=== PATIENT | female | born 1990 | race Caucasian/White ===

== ENCOUNTER 2024-08-11 00:07 | Emergency (ER) | payer OTHER, SELFPAY ==
[2024-08-11 00:14] VITALS: BP 139/98; PULSE 90; TEMP 36.4; O2SAT 95; BMI 50.1
[2024-08-11 00:33] LABS: Bilirubin Urine NEGATIVE (NEGATIVE); Blood Urine NEGATIVE (NEGATIVE); Clarity Urine CLEAR (CLEAR); Color Urine LT. YELLOW (YELLOW); Glucose Urine UA NEGATIVE (NEGATIVE); Ketones Urine TRACE mg/dL (NEGATIVE); Leukocyte Esterase Urine MODERATE (NEGATIVE); Nitrite Urine POSITIVE (NEGATIVE); Protein Urine NEGATIVE (NEG/TRACE); Specific Gravity Urine >=1.030 (1.005-1.025); Urine Microscopic Indicated YES; Urobilinogen Urine 0.2 EU/dL (0.2-1.0)
[2024-08-11 00:34] LABS: HCG Qualitative Urine* NEGATIVE (NEGATIVE); Internal Control Within Normal Limits
--- NOTE | 2024-08-11 00:43 | ED.GENADUL1 ---
HPI HPI - General Adult General Chief complaint: Back Pain/Injury Stated complaint: BACK PAIN Time Seen by Provider: 08/11/24 00:35 Source: patient Mode of arrival: walk-in Limitations: no limitations History of Present Illness HPI narrative: 33-year-old female presents to the emergency department for a chief complaint of low back pain. It started within the last day or so and was not associated with any trauma or unusual activity. It does not radiate. No fever or vomiting or gross hematuria. Related Data Home Medications ?Medication ?Instructions ?Recorded ?Confirmed dulaglutide 3 mg/0.5 mL 3 mg subcut QWEEK 08/11/24 08/11/24 subcutaneous pen injector ([facility]) metformin 500 mg tablet,extended 500 mg PO BID 08/11/24 08/11/24 release 24 hr omeprazole 40 mg capsule,delayed 40 mg PO DAILY 08/11/24 08/11/24 release Previous Rx's ?Medication ?Instructions ?Recorded cephalexin 500 mg capsule 500 mg PO TID 7 days #21 caps 08/11/24 Allergies Allergy/AdvReac Type Severity Reaction Status Date / Time amoxicillin (From Augmentin) Allergy Severe Rash Verified 08/11/24 00:18 clavulanic acid (From Allergy Severe Rash Verified 08/11/24 00:18 Augmentin) Opioid HPI Opioid Management Most Recent Opioid Data: No Data to Display Review of Systems ROS Narrative A ten point review of systems is negative except as noted above. PFSH PFSH Social History Little interest or pleasure in doing things: not at all Feeling down, depressed, or hopeless: not at all Exam Narrative Exam Narrative: Nurses note and vital signs reviewed and patient is not hypoxic. General: The patient appears well and in no apparent distress. Patient is resting comfortably on cart. Skin: Warm, dry, no pallor noted. There is no rash noted. Head: Normocephalic, atraumatic Eye: Normal conjunctiva, no drainage Ears, Nose, Mouth, and Throat: oral mucosa is moist. Nares patent. Cardiovascular: Regular Rate and Rhythm Respiratory: Patient is in no distress, no accessory muscle use, lungs are clear to auscultation, no wheezing, rales or rhonchi Back: non-tender, no CVA tenderness bilaterally to percussion. No palpable tenderness GI: Soft and nontender Musculoskeletal: No joint swelling Neurological: A&O, normal speech Psychiatric: Cooperative Constitutional Vital Signs, click to edit/add: Last Vital Signs Temp 97.6 F 08/11/24 00:14 Pulse 90 08/11/24 00:14 Resp 18 08/11/24 00:14 BP 139/98 H 08/11/24 00:14 Pulse Ox 95 08/11/24 00:14 O2 Del Method Room Air 08/11/24 00:14 Course Vital Signs Vital signs: Vital Signs Temperature 97.6 F 08/11/24 00:14 Pulse Rate 90 08/11/24 00:14 Respiratory Rate 18 08/11/24 00:14 Blood Pressure 139/98 H 08/11/24 00:14 Pulse Oximetry 95 08/11/24 00:14 Oxygen Delivery Method Room Air 08/11/24 00:14 Temperature 97.6 F 08/11/24 00:14 Pulse Rate 90 08/11/24 00:14 Respiratory Rate 18 08/11/24 00:14 Blood Pressure 139/98 H 08/11/24 00:14 Pulse Oximetry 95 08/11/24 00:14 Oxygen Delivery Method Room Air 08/11/24 00:14 Medical Decision Making MDM Narrative Medical decision making narrative: Urinalysis shows UTI and test is negative. She was started on Keflex here and prescribed same. Treatment diagnosis and follow-up were discussed with the patient. Differential Diagnosis Differential Diagnosis: UTI, muscle strain Lab Data Lab results reviewed: Yes I reviewed the patient's lab results Labs: Lab Results 08/11/24 Range/Units 00:25 Urine Color Lt. yellow (YELLOW) Urine Clarity Clear (CLEAR) Urine pH 6.0 (5.0-9.0) Ur Specific [place] >=1.030 A (1.005-1.025) Urine Protein Negative (NEG/TRACE) mg/dL Urine Glucose (UA) Negative (NEGATIVE) mg/dL Urine Ketones Trace A (NEGATIVE) mg/dL Urine Occult Blood Negative (NEGATIVE) Urine Nitrite Positive A (NEGATIVE) Urine Bilirubin Negative (NEGATIVE) Urine Urobilinogen 0.2 (0.2-1.0) EU/dL Ur Leukocyte Esterase Moderate A (NEGATIVE) Urine HCG, Qual Negative (NEGATIVE) Discharge Plan Discharge Chief Complaint: Back Pain/Injury Clinical Impression: Urinary tract infection Patient Disposition: Home, Self-Care Time of Disposition Decision: 00:40 Condition: Good Mode of Transportation: Private Vehicle Prescriptions / Home Meds: New cephalexin 500 mg capsule 500 mg PO TID 7 Days Qty: 21 0RF No Action omeprazole 40 mg capsule,delayed release(DR/EC) 40 mg PO DAILY Trulicity 3 mg/0.5 mL pen injector 3 mg subcut QWEEK metformin 500 mg tablet extended release 24 hr 500 mg PO BID Print Language: Spanish Instructions: Urinary Tract Infection in Women (ED) Referrals: Anya Darden NP [Primary Care Provider] - 1 week
[2024-08-11 00:45] LABS: Bacteria Urine LARGE #/HPF (NONE SEEN); Cast Seen? NONE SEEN #/LPF (NONE SEEN); Crystals Seen? None Seen #/HPF (None Seen); Mucus Urine NONE SEEN (NONE SEEN); RBC Urine 0-2 #/HPF (0-2); Squamous Epithelial Cell Urine FEW #/LPF (NONE/RARE); Trichomonas Urine SEEN (NONE SEEN); Urine Culture Indicated YES
[2024-08-11] MEDS: CEPHALEXIN 500 MG CAPSULE PO (00:48)
[2024-08-11 00:56] VITALS: PULSE 88; O2SAT 96
[2024-08-11 14:41] LABS: BOX Test Reference Lab FIRELANDS
--- NOTE | 2024-08-17 14:09 | PC.NURSE ---
Urine culture completed and reviewed by Charlotte LEYVA. patient was already placed on cephalexin and no change in treatment.
== END 2024-08-11 00:56 | disposition home or self-care (01) ==
PROVIDERS: Emergency Provider Emergency Medicine; PCP Nurse Practitioner Family
DX: N39.0 Urinary tract infection, site not specified (principal)
CPT/HCPCS: 36415; 81001; 84703; 87086; 87150; 87186; 99283

== ENCOUNTER 2025-01-07 03:49 | Emergency (ER) | payer OTHER, SELFPAY ==
[2025-01-07 04:00] VITALS: BP 153/95; PULSE 69; TEMP 36.5; O2SAT 99; BMI 55.2
--- OUTSIDE RECORDS SUMMARY | 2025-01-07 04:01 | XMS_ITS | CCD ---
Author Organization [facility] Care Team Providers Care People Greeter Name Role Phone NON STAFF Primary Care Provider Unavailabl e Bullimore, SHIP'S OFFICER-BC Cynthia E Emergency Provider YOUSSEF, RAHEEM Referring Unavailable YOUSSEF, RAHEEM Primary Care Unavailable AINSLEY JOHNSON Referring Unavailable YOUSSEF, RAHEEM Primary Care Unavailable AINSLEY JOHNSON Referring Unavailable YOUSSEF, RAHEEM Primary Care Unavailable YOUSSEF, RAHEEM Referring Unavailable YOUSSEF, RAHEEM Primary Care Unavailable THERESA MAYERS Attending Unavailable THERESA MAYERS Referring Unavailable YOUSSEF, RAHEEM Primary Care Unavailable THERESA MAYERS Referring Unavailable YOUSSEF, RAHEEM Primary Care Unavailable DAVID COLE Admitting Unavailable GRILLISDAVID Attending Unavailable GRILLISDAVID E Referring Unavailable YOUSSEF, RAHEEM Primary Care Unavailable DAVID COLE Attending Unavailable SUKHIILLISDAVID Referring Unavailable YOUSSEF, RAHEEM Primary Care Unavailable RENETTA MELENDREZ Attending Unavailable YOUSSEF, RAHEEM Primary Care Unavailable AINSLEY JOHNSON Referring Unavailable YOUSSEF, RAHEEM Primary Care Unavailable Paddy Lee DO Attending Provider Unavailab le Youssef CLAIMS DIRECTOR-CORPORATE DIRECTOR TALENT ASSESSMENT, Raheem Primary Care Provider NON STAFF Primary Care Unavailable Bullimore, Cynthia E Admitting Unavailable Bullimore, Cynthia E Attending Unavailable Paddy Lee Admitting Unavailable Paddy Lee Attending Unavailable YOUSSEF, RAHEEM Attending Unavailable YOUSSEF, RAHEEM Referring Unavailable YOUSSEF, RAHEEM Primary Care Unavailable YOUSSEF, RAHEEM Referring Unavailable YOUSSEF, RAHEEM Primary Care Unavailable YOUSSEF, RAHEEM Attending Unavailable YOUSSEF, RAHEEM Referring Unavailable YOUSSEF, RAHEEM Primary Care Unavailable SCOTT EDWARDS Attending Unavailable RAHEEM YOUSSEF Referring Unavailable RAHEEM YOUSSEF Primary Care Unavailable RAHEEM YOUSSEF Attending Unavailable RAHEEM YOUSSEF Referring Unavailable RAHEEM YOUSSEF Primary Care Unavailable Youssef CLAIMS DIRECTOR-CORPORATE DIRECTOR TALENT ASSESSMENT Raheem Primary Care Provider Allergies Allergy Classification Reported Allergen(s) Allergy Type Date of Onset Reaction(s) Facility (3 sources) Amoxicillin; Translations: [amoxicillin] Drug Allergy 4 [facility] (3 sources) Clavulanate; Translations: [clavulanic acid] Drug Allergy 4 [facility] (16 sources) AMOXICILLIN-POT CLAVULANATE; Translations: [AMOXICILLIN-POT CLAVULANATE] Propensity to adverse reactions to drug (disorder) 3 Rash [facility] Medications Current Medications Medication Drug Class(es) Dates Sig (Normalized) Sig (Original) blood-glucose meter kit (7 sources) Start: 02-09-2024 blood-glucose meter kit Indications: Controlled type 2 diabetes mellitus without complication, without long-term current use of insulin ([facility]) Use as instructed 1 each 02/09/2024 Active cholecalciferol 1.25 mg oral capsule (2 sources) Vitamin D Start: 11-07-2023 End: 12-27-2023 take 1 capsule by mouth every week cholecalciferol (VITAMIN D3) 50,000 units capsule Take 1 capsule (50,000 Units total) by mouth once a week for 8 doses. 8 capsule 11/07/2023 12/27/2023 Active cyclobenzaprine hydrochloride 10 mg oral tablet (2 sources) Muscle Relaxant Start: 01-26-2024 take 1 tablet by mouth three times daily as needed for muscle spasms Cyclobenzaprine 10 mg tablet Active 10 MG PO Three times daily as needed for muscle spasm January 25, 2024 11:00pm 0.5 ml dulaglutide 3 mg/ml auto-injector (9 sources) GLP-1 Receptor Agonist Start: 01-23-2024 End: 01-26-2024 Dulaglutide (Trulicity) 1.5 mg/0.5 mL pen injector Active 1.5 MG SUBCUT every week January 25, 2024 11:00pm Start: 12-16-2023 End: 01-23-2024 dulaglutide (TRULICITY) 1.5 mg/0.5 mL pen injector Indications: Prediabetes Inject 1.5 mg under the skin every 7 days. 2 mL 12/16/2023 01/23/2024 Discontinued Start: 11-06-2023 End: 12-16-2023 dulaglutide (TRULICITY) 0.75 mg/0.5 mL pen injector Indications: Prediabetes Inject 0.5 mL (0.75 mg total) under the skin every 7 days. 2 mL 11/06/2023 12/16/2023 Discontinued (Dose adjustment) ibuprofen 800 mg oral tablet (2 sources) Nonsteroidal Anti-inflammatory Drug Start: 07-24-2023 End: 10-22-2023 take 1 tablet by mouth every eight hours as needed for pain and headache ibuprofen (MOTRIN) 800 mg tablet Take 1 tablet (800 mg total) by mouth every 8 (eight) hours as needed for pain or headaches for up to 90 days. 30 tablet 3 07/24/2023 10/22/2023 Active ketorolac tromethamine 10 mg oral tablet (2 sources) Nonsteroidal Anti-inflammatory Drug, Cyclooxygenase Inhibitor Start: 01-26-2024 take 1 tablet by mouth every six hours as needed for pain Ketorolac 10 mg tablet Active 10 MG PO Q6H as needed for pain January 25, 2024 11:00pm lidocaine 0.05 mg/mg medicated patch (7 sources) Antiarrhythmic, Amide Local Anesthetic Start: 01-26-2024 apply 1 dose transdermal route once daily lidocaine (LIDODERM) 5 % Place 1 patch on the skin daily. 01/26/2024 Active Start: 01-26-2024 apply 1 dose topical ly once daily as needed for pain Lidocaine 5 % adhesive patch,medicated Active 1 PATCH TOPICAL Daily as needed for pain January 25, 2024 11:00pm leave on most painful area for up to 12 hrs metFORMIN hydrochloride 1000 mg oral tablet (19 sources) Biguanide Start: 08-11-2024 End: 11-09-2024 take 1 tablet by mouth in the morning, then take 1 tablet by mouth at mealtime metFORMIN (GLUCOPHAGE) 1000 mg tablet Take 1 tablet (1,000 mg total) by mouth in the morning and 1 tablet (1,000 mg total) in the evening. Take with meals. Do all this for 90 days. 180 tablet 1 08/11/2024 11/09/2024 Active Start: 07-24-2023 End: 08-11-2024 take 1 tablet by mouth in the morning, then take 1 tablet by mouth at mealtime metFORMIN (GLUCOPHAGE) 500 mg tablet Indications: Wellness examination Take 1 tablet (500 mg total) by mouth in the morning and 1 tablet (500 mg total) in the evening. Take with meals. 60 tablet 3 11/06/2023 04/18/2024 Discontinued (Reorder) predniSONE 50 mg oral tablet (4 sources) Start: 01-26-2024 take 1 tablet by mouth once daily Prednisone 50 mg tablet Active 50 MG PO Daily 4 4 January 25, 2024 11:00pm Start: 01-19-2018 End: 01-24-2018 take 2 tablets by mouth once daily Prednisone 20 mg tablet Discontinued 40 MG PO Daily 10 January 18, 2018 11:00pm January 22, 2018 11:00pm January 23, 2018 11:02pm Start: 01-19-2018 End: 01-24-2018 take 40 mg by mouth once daily Prednisone Discontinued 40 MG PO Daily 10 January 19, 2018 12:00am January 24, 2018 12:02am semaglutide (OZEMPIC) 0.25 m g or 0.5 mg (2 mg/3 mL) pen injector (4 sources) Start: 08-11-2024 semaglutide (O ZEMPIC) 0.25 mg or 0.5 mg (2 mg/3 mL) pen injector Indications: Controlled type 2 diabetes mellitus without complication, without long-term current use of insulin ([facility]) Inject 0.5 mg under the skin every 7 days. 2 mL 08/11/2024 Active Start: 02-09-2024 End: 02-25-2024 semaglutide (OZEMPIC) 0.25 m g or 0.5 mg (2 mg/3 mL) pen injector Indications: Controlled type 2 diabetes mellitus without complication, without long-term current use of insulin ([facility]) Inject 0.25 mg under the skin every 7 days. 6 mL 02/09/2024 02/25/2024 Discontinued (Formulary change) Start: 02-09-2024 semaglutide (O ZEMPIC) 0.25 mg or 0.5 mg (2 mg/3 mL) pen injector Indications: Controlled type 2 diabetes mellitus without complication, without long-term current use of insulin ([facility]) Inject 0.25 mg under the skin every 7 days. 6 mL 02/09/2024 Active Completed/Discontinued Medications Medication Drug Class(es) Dates Sig (Normalized) Sig (Original) Albuterol (1 source) beta2-Adrenergic Agonist Start: 01-19-2018 End: 01-26-2024 Albuterol Sulfate Discontinued 2 INH INHALATION Q4H January 19, 2018 12:00am January 26, 2024 9:49am administer with spacer Albuterol Sulfate 90 mcg/actuation HFA aerosol inhaler (1 source) Start: 01-19-2018 End: 01-26-2024 Albuterol Sulfate 90 mcg/actuation HFA aerosol inhaler Discontinued 2 INH INHALATION Q4H as needed for shortness of breath or wheezing January 18, 2018 11:00pm January 26, 2024 8:49am administer with spacer dulaglutide (TRULICITY) 3 mg/0.5 mL pen injector (8 sources) Start: 07-19-2024 End: 08-11-2024 dulaglutide (TRULICITY) 3 mg/0.5 mL pen injector Inject 3 mg under the skin every 7 days. 2 mL 2 07/19/2024 08/11/2024 Discontinued (Alternate therapy) Start: 01-26-2024 dulaglutide (T RULICITY) 3 mg/0.5 mL pen injector Inject 3 mg under the skin every 7 days. 2 mL 2 01/26/2024 Active levoFLOXacin 750 mg oral tablet (2 sources) Quinolone Antimicrobial Start: 01-19-2018 End: 01-29-2018 take 1 tablet by mouth every twenty-four hours Levofloxacin (Levaquin) 750 mg tablet Discontinued 750 MG PO Q24H 10 January 18, 2018 11:00pm January 27, 2018 11:00pm January 28, 2018 11:02pm omeprazole 40 mg delayed release oral capsule (19 sources) Proton Pump Inhibitor Start: 07-24-2023 End: 08-11-2024 take 1 capsule by mouth in the morning omeprazole (PriLOSEC) 40 mg capsule Indications: Wellness examination Take 1 capsule (40 mg total) by mouth in the morning. 30 capsule 2 11/06/2023 04/18/2024 Discontinued (Reorder) Problems Active Problems Problem Classification Problem Date Documented Da te Episodic/Chronic Diabetes mellitus without complication (14 sources) Type 2 diabetes mellitus without complications; Translations: [Type 2 diabetes mellitus without complication] Onset: 02-09-2024 08-13-2024 Chronic Esophageal disorders (4 sources) Vazquez's esophagus without dysplasia; Translations: [Vazquez's esophagus] Onset: 03-04-2024 08-11-2024 Chronic Genitourinary symptoms and ill-defined conditions (7 sources) Stress incontinence (female) (male); Translations: [Genuine stress incontinence] Onset: 07-28-2023 07-24-2023 Chronic Headache; including migraine (18 sources) Migraine without aura, not intractable, with status migrainosus; Translations: [Migraine without aura, not refractory ] Onset: 07-28-2023 07-28-2023 Chronic Other nutritional; endocrine; and metabolic disorders (1 source) Morbid (severe) obesity due to excess calories; Translations: [Morbid (severe) obesity due to excess calories] Onset: 02-26-2024 Chronic Other nutritional; endocrine; and metabolic disorders (1 source) Body mass index (BMI) 50.0-59.9, adult; Translations: [Body mass index (BMI) 50.0-59.9, adult] Onset: 02-26-2024 Chronic Other nutritional; endocrine; and metabolic disorders (10 sources) Morbid obesity; Translations: [Morbid (severe) obesity due to excess calories] Onset: 12-10-2023 12-10-2023 Chronic Other nutritional; endocrine; and metabolic disorders (2 sources) Body mass index 40+ - severely obese; Translations: [Body mass index (BMI) 50.0-59.9, adult] 02-25-2024 Chronic Other screening for suspected conditions (not mental disorders or infectious disease) (1 source) Encounter for screening for malignant neoplasm of cervix; Translations: [Encounter for screening for malignant neoplasm of cervix] Onset: 12-10-2023 Episodic Unclassified (1 source) Annual Exam Onset: 12-10-2023 Unclassified (1 source) wellness Onset: 11-06-2023 Past or Other Problems Problem Classification Problem Date Documented Da te Episodic/Chronic Contraceptive and procreative management (2 sources) Intrauterine contraceptive device in situ; Translations: [Encounter for routine checking of intrauterine contraceptive device] 07-24-2023 Episodic Diabetes mellitus without complication (20 sources) Prediabetes; Translations: [Prediabetes] Onset: 07-28-2023 07-28-2023 Episodic Mood disorders (14 sources) Mood disorders Onset: 07-24-2023 Resolved: 02-09-2024 02-09-2024 Other gastrointestinal disorders (1 source) Personal history of other diseases of the digestive system; Translations: [Personal history of other diseases of the digestive system] Onset: 02-25-2024 Episodic Other gastrointestinal disorders (2 sources) History of Vazquez's esophagus; Translations: [Personal history of other diseases of the digestive system] 02-23-2024 Episodic Residual codes; unclassified (1 source) Family history of other diseases of the digestive system; Translations: [Family history of other diseases of the digestive system] Onset: 02-09-2024 Episodic Residual codes; unclassified (1 source) Family history of cirrhosis of liver; Translations: [Family history of other diseases of the digestive system] 02-09-2024 Episodic Residual codes; unclassified (1 source) Electronic cigarette user; Translations: [Other problems related to lifestyle] 02-25-2024 Episodic Screening and history of mental health and substance abuse codes (1 source) Encounter for screening for depression; Translations: [Encounter for screening for depression] Onset: 12-10-2023 Episodic Spondylosis; intervertebral disc disorders; other back problems (3 sources) Spasm of back muscles; Translations: [Muscle spasm of back] Onset: 01-26-2024 01-26-2024 Episodic Unclassified (10 sources) Onset: 12-10-2023 12-10-2023 Results Test Name Value Interpretation Reference Range Facility POCT Hemoglobin A1con 2024 ADA Target < 8 Yes [facility] HbA1c (Bld) [Mass fraction] 6.5 % 4 - 7 % [facility] Urine Cultureon 08-10-2024 Bacteria identified Cx Nom (U) ORGANISM: Escherichia coli (O:ESCCOL) [place] Count >100,000 Aerobic ANGELICA Charge (NMIC56) ---- SUSCEPTIBILITY --- ORGANISM: O:ESCCOL ANTIBIOTIC INTERPRETATION ANGELICA Amikacin S <16 Amoxacillin/K Clavulanate S <8 Ampicillin S <8 Ampicillin/Sulbactam S <4 Aztreonam S <4 Cefazolin S <2 Cefepime S <2 Ceftazidime S <1 Ceftazidime/Avibactam S <4 Ceftolozane/Tazobacta m S <2 Ceftriaxone S <1 Cefuroxime S <4 Ciprofloxacin S <0.25 Ertapenem S <0.5 Gentamicin S <2 Levofloxacin S <0.5 Meropenem S <1 Meropenem/Vaborbactam S <2 Nitrofurantoin S <32 Piperacillin/Tazobact am S <8 Tetracycline S <4 Tigecycline S <2 Tobramycin S <2 Trimethoprim/Sulfamet hoxazole R >2 S = SUSCEPTIBLE I = INTERMEDIATE R = RESISTANT BLANK = DATA NOT AVAILABLE, OR DRUG NOT ADVISABLE OR TESTED R* = RESISTANCE DUE TO EXTENDED SPECTRUM BETA-LACTAMASES ESBL = EXTENDED SPECTRUM BETA-LACTAMASE TFG = THYMIDINE-DEPENDENT STRAIN TODD = BETA-LACTAMASE POSITIVE IB = INDUCIBLE BETA-LACTAMASE. APPEARS IN PLACE OF 'S' WITH SPECIES KNOWN TO POSSESS INDUCIBLE BETA-LACTAMASES. POTENTIALLY THEY MAY BECOME RESISTANT TO ALL B-LACTAM DRUGS. PERFORMED BY: [place] [address] PATHOLOGIST ORACLE BPM DEVELOPER KRISTEN MELGOZA M.D. Normal [facility] Comment on above: Performed By: #### C UU #### [place] [address] [place] HCG ( test) Ql (U)o n 03-04-2024 Beta HCG ( test) Ql (U) Negative Normal NEG [facility] Comment on above: Performed By: #### C BCA, CMP, 82626-6, TSHR, 37515-6, 2132-9, 3023- #### [facility] ([id number]) [address] [place] [address], [address] [place] [address] Surgical Pathologyon 024 Surgical Pathology Normal [facility] Comment on above: Result Comment: [facility] [address] [place] [address] Surgical Pathology Consultation Patient Name:EMILEE HOOD:1990 (Age: 33)Gender:FTaken:03/04/2024eported:03/08/2024hysician(s):David Cole D.O. ([phone])Copy To: Rec. #:[id number]: #[id number] Final Pathologic Diagnosis Distal esophageal biopsies: Intestinal metaplasia. Negative for dysplasia. Moderately active gastroesophagitis with mixed eosinophils and neutrophils. Report Electronically Signed Out ssi/03/08/2024Joaquim Ding M.D. Interpretation performed at [facility], [address] [place] [address], License number: [id number]. Clinical History Vazquez's esophagus. Gross Description Received in formalin labeled [facility], distal esophagus are light smith soft tissue fragment, 1.2 x 0.6 x 0.2 cm in aggregate. The specimen is filtered and entirely submitted in a single cassette. (1, ns, [id number]) DM. dm/03/04/2024O Specimen(s) Received Distal esophageal biopsy Fee Codes(s): 1; 68524, 3126F ECG 12 leadon 02-27-2024 TRACEMASTERVUE [facility] [employer] BASIC METABOLIC PANLon 02-25 Anion gap [Moles/Vol] 10 mmol/L Normal 5-[address] [facility] Comment on above: Performed By: #### C BCA, CMP, 09076-1, TSHR, 23962-5, 2131-, 3024-02 #### [facility] ([id number]) [address], [address] [place] [address] Calcium [Mass/Vol] 9.0 mg/dL Normal 8.5-10.5 [facility] Comment on above: Performed By: #### C BCA, CMP, 01730-5, TSHR, 22098-5, 2132-04, 3023-7 #### [facility] ([id number]) [address], [address] [place] [address] Chloride [Moles/Vol] 103 mmol/L Normal 98-[address] [facility] Comment on above: Performed By: #### C BCA, CMP, 71144-7, TSHR, 01409-2, 2132-04, 3023-7 #### [facility] ([id number]) [address], [address] [place] [address] CO2 [Moles/Vol] 24 mmol/L Normal 22-32 [facility] Comment on above: Performed By: #### C BCA, CMP, 95802-3, TSHR, 06677-0, 2132-04, 3023-7 #### [facility] ([id number]) [address] [address] [place] [address] Creatinine [Mass/Vol] 0.69 mg/dL Normal 0.40-1.[address] [facility] Comment on above: Result Comment: METH OD TRACEABLE TO IDMS STANDARD Performed By: #### C BCA, CMP, 20985-9, TSHR, 34358-6, 2132-04, 3023-7 #### [facility] ([id number]) [address] [address] [place] [address] eGFR (CKD-EPI) NON-RACE DEPENDENT >90 Normal >59 [facility] Comment on above: Result Comment: Reported eGFR is based on the CKD-EPI 2020 equation that does not use a race coefficient. Performed By: #### C BCA, CMP, 24680-5, TSHR, 19399-9, 2132-04, 3024-7 #### [facility] ([id number]) [address], [address] [place] [address] Glucose [Mass/Vol] 95 mg/dL Normal 65-99 [facility] Comment on above: Performed By: #### C BCA, CMP, 12971-8, TSHR, 17202-3, 2132-04, 3024-02 #### [facility] ([id number]) [address], [address] [place] [address] Potassium [Moles/Vol] 3.8 mmol/L Normal 3.5-5.[address] [facility] Comment on above: Performed By: #### C BCA, CMP, 34731-7, TSHR, 38139-2, 2132-04, 3024-02 #### [facility] ([id number]) [address], [address] [place] [address] Sodium [Moles/Vol] 137 mmol/L Normal 134-146 [facility] Comment on above: Performed By: #### C BCA, CMP, 91905-9, TSHR, 52306-6, 2132-04, 3024-02 #### [facility] ([id number]) [address], [address] [place] [address] Urea nitrogen [Mass/Vol] 15 mg/dL Normal 5-[address] [facility] Comment on above: Performed By: #### C BCA, CMP, 15087-8, TSHR, 65629-1, 2132-04, 3024-02 #### [facility] ([id number]) [address], [address] [place] [address] Basic Metabolic Panelon 07-2 Anion gap [Moles/Vol] 10 mmol/L 5 - 15 mmol/L [facility] Calcium [Mass/Vol] 9.0 mg/dL 8.5 - 10. 5 mg/dL [facility] Chloride [Moles/Vol] 103 mmol/L 98 - 109 mmol/L [facility] CO2 [Moles/Vol] 24 mmol/L 22 - 32 mmol/L [facility] Creatinine [Mass/Vol] 0.69 mg/dL 0.40 - 1.00 mg/dL [facility] Comment on above: METHOD TRACEABLE TO IDIL STANDARD eGFR (CKD-EPI)non-race dependent - PINF [facility] Comment on above: Reported eGFR is based on the CKD-EPI 2020 equation that does not use a race coefficient. Glucose [Mass/Vol] 95 mg/dL 65 - 99 mg/dL [facility] Potassium [Moles/Vol] 3.8 mmol/L 3.5 - 5.0 mmol/L [facility] Sodium [Moles/Vol] 137 mmol/L 134 - 146 mmol/L [facility] Urea nitrogen [Mass/Vol] 15 mg/dL 5 - 23 mg/dL [facility] XR chest 2V*on 01-26-2024 XR chest 2V* [facility] [place] [address] [place] [address] XRay Report Signed Patient: Emilee Hood MR#: [id number] : 1990 Acct:[id number] Age/Sex: 33 / F ADM Date: 01/26/24 Loc: ER Room: Type: [facility] ER Attending Dr: Copies to: AWILDA Day Ordering Provider: AWILDA Day Date of Service: 01/26/24 XR/XR chest 2V*: Back Pain/Injury Chest 2 views CLINICAL HISTORY: Left-sided back pain since yesterday. No known injury. COMPARISON: None FINDINGS: Heart normal in size. Lungs are clear. No free air. XR/XR chest 2V* IMPRESSION: NO ACUTE CARDIOPULMONARY ABNORMALITY. Impression dictated by: Ok Pollack Jr., D.O.01/26/2024 10:14 AM Dictation Location: [place] [address] Transcribed By: [facility] 01/26/24 1014 Dictated By: Ok Pollack Jr, DO 01/26/24 1012 Signed By: 01/26/24 1014 Normal [facility] Cytologyon 12-10-2023 Cytology Normal [facility] Comment on above: Result Comment: [facility] [address] [place] [address] Gynecologic Cytology Consultation Patient Name:AVILA HOODYDOB:1990 (Age: 32)Gender:FTaken:4Reported:4Physician(s):Ainsley Johnson APRN-CORPORATE DIRECTOR TALENT ASSESSMENT ([phone])Copy To: Rec. #:[id number]: #[id number] Final Cytologic Interpretation ThinPrep Pap Test (Cervical): Satisfactory for evaluation. A transformation zone component is present. NEGATIVE FOR INTRAEPITHELIAL LESION OR MALIGNANCY. nxk/01/01/2024 Interpretation performed at [facility], [address] [place] [address], License number: [id number]. Electronically Signed Out By Jasper Marino MD Date of Last Menstrual Period: 12/05/23 Other Clinical Conditions: Z12.4 Screening for malignant neoplasm of cervix Source of Specimen ThinPrep Pap Test (Cervical) Thin Prep Pap (FIELD GAUGER) Fee Code(s): G0145, 06478 The Pap test is a screening test with an inherent, but low, probability of error. The Pap test is primarily effective for the diagnosis and prevention of squamous cell carcinoma. Regular screening is critical for prevention. ThinPrep liquid-based slides, which meet the Rv Repair Technician criteria for automated screening, have been screened by the ThinPrep Imaging System (as of 04/20/07) along with an additional manual rescreening by a blindstitch machine operator and, if indicated, by a pathologist. HIGH RISK HPV W/GENOon 12-09 HPV 31+33+35+39+45+51+ 52+56+58+59+66+68 DNA CRYSTAL+probe Ql (Cvx) HPV SPECIMEN TYPE ThinPrep HPV 16 Negative (qualifier value) HPV 18 Negative (qualifier value) OTHER HIGH RISK HPV Negative (qualifier value) HPV types 31,33,35,39,45,52,56, 58,59,66 and 68 DNA were undetectable. Normal [facility] Comment on above: Performed By: #### 7 1431-1 #### [facility] ([id number]) [address] [place] [address], [place] [address] [facility] ([id number]) [address], [address] [place] [address] CBC AND AUTO DIFFon 11-06-19 24 ABSOLUTE BASOPHIL 0.0 X10E9/L Normal 0.0-0.2 [facility] Comment on above: Performed By: #### C BCA, CMP, 38754-4, TSHR, 07767-6, 2132-04, 7 #### [facility] ([id number]) [address], [address] [place] [address] ABSOLUTE NEUTROPHIL 4.9 X10E9/L Normal 1.5-6.[address] [facility] Comment on above: Performed By: #### C BCA, CMP, 09844-3, TSHR, 48371-1, 2132-04, 7 #### [facility] ([id number]) [address], [address] [place] [address] Basophils/100 WBC (Bld) 0.4 % Normal [facility] Comment on above: Performed By: #### C BCA, CMP, 35197-4, TSHR, 39586-7, 2132-04, 3024-02 #### [facility] ([id number]) [address], [address] [place] [address] Eosinophils (Bld) [#/Vol] 0.3 10*3/uL Normal 0.0-0.[address] [facility] Comment on above: Performed By: #### C BCA, CMP, 10779-4, TSHR, 15550-3, 9, 3023-7 #### [facility] ([id number]) [address], [address] [place] [address] Eosinophils/100 WBC (Bld) 2.6 % Normal [facility] Comment on above: Performed By: #### C BCA, CMP, 30508-7, TSHR, 27616-9, 2132-04, 3024-02 #### [facility] ([id number]) [address], [address] [place] [address] Erythrocyte distribution width (RBC) [Ratio] 12.3 % Normal 11.5-15.[address] [facility] Comment on above: Performed By: #### C BCA, CMP, 11911-3, TSHR, 88241-4, 2132-04, 3024-02 #### [facility] ([id number]) [address], [address] [place] [address] Hematocrit (Bld) [Volume fraction] 38.1 % Normal 35-47 [facility] Comment on above: Performed By: #### C BCA, CMP, 94587-8, TSHR, 66640-2, 2132-04, 3024-02 #### [facility] ([id number]) [address], [address] [place] [address] Hemoglobin (Bld) [Mass/Vol] 13.2 g/dL Normal 11.7-15.[address] [facility] Comment on above: Performed By: #### C BCA, CMP, 88319-3, TSHR, 47986-7, 2132-04, 3024-02 #### [facility] ([id number]) [address], [address] [place] [address] Lymphocytes (Bld) [#/Vol] 4.3 10*3/uL High 1.0-3.[address] [facility] Comment on above: Performed By: #### C BCA, CMP, 58942-4, TSHR, 95144-3, 2132-04, 3024-02 #### [facility] ([id number]) [address], [address] [place] [address] Lymphocytes/100 WBC (Bld) 41.1 % Normal [facility] Comment on above: Performed By: #### C BCA, CMP, 03053-5, TSHR, 34783-1, 2132-04, 3024-02 #### [facility] ([id number]) [address], [address] [place] [address] MCH (RBC) [Entitic mass] 30.4 pg Normal 27-[address] [facility] Comment on above: Performed By: #### C BCA, CMP, 88411-0, TSHR, 96752-3, 2132-04, 3024-02 #### [facility] ([id number]) [address], [address] [place] [address] MCHC (RBC) [Mass/Vol] 34.7 g/dL Normal 32-[address] [facility] Comment on above: Performed By: #### C BCA, CMP, 46275-2, TSHR, 26178-0, 2132-04, 3024-02 #### [facility] ([id number]) [address], [address] [place] [address] MCV (RBC) [Entitic vol] 88 fL Normal 80-[address] [facility] Comment on above: Performed By: #### C BCA, CMP, 45866-6, TSHR, 98078-7, 2132-04, 3024-02 #### [facility] ([id number]) [address], [address] [place] [address] Monocytes (Bld) [#/Vol] 0.9 10*3/uL Normal 0-0.[address] [facility] Comment on above: Performed By: #### C BCA, CMP, 22927-6, TSHR, 27648-4, 2132-04, 3024-02 #### [facility] ([id number]) [address], [address] [place] [address] Monocytes/100 WBC (Bld) 9.0 % Normal [facility] Comment on above: Performed By: #### C BCA, CMP, 11602-6, TSHR, 09931-5, 2132-04, 3023-7 #### [facility] ([id number]) [address], [address] [place] [address] Neutrophils/100 WBC (Bld) 46.9 % Normal [facility] Comment on above: Performed By: #### C BCA, CMP, 41056-5, TSHR, 49039-6, 2132-04, 3023-7 #### [facility] ([id number]) [address], [address] [place] [address] Platelet mean volume (Bld) [Entitic vol] 8.4 fL Normal 7-[address] [facility] Comment on above: Performed By: #### C BCA, CMP, 58715-0, TSHR, 41427-8, 2132-04, 3023-7 #### [facility] ([id number]) [address], [address] [place] [address] Platelets (Bld) [#/Vol] 338 10*3/uL Normal 150-[address] [facility] Comment on above: Performed By: #### C BCA, CMP, 73025-8, TSHR, 05664-9, 2132-04, 7 #### [facility] ([id number]) [address], [address] [place] [address] RBC COUNT 4.35 X10E12/L Normal 3.80-5.20 [facility] Comment on above: Performed By: #### C BCA, CMP, 85796-6, TSHR, 07825-8, 2132-04, 3023-7 #### [facility] ([id number]) [address], [address] [place] [address] WBC (Bld) [#/Vol] 10.5 10*3/uL Normal 4.0-11.0 [facility] Comment on above: Performed By: #### C BCA, CMP, 71433-5, TSHR, 78409-1, 2132-9, 3024-7 #### [facility] ([id number]) [address] [place] [address] CBC auto differentialon 04-0 Basophils (Bld) [#/Vol] 0.0 10*3/uL [facility] Basophils/100 WBC (Bld) 0.4 % [facility] Eosinophils (Bld) [#/Vol] 0.3 10*3/uL [facility] Eosinophils/100 WBC (Bld) 2.6 % [facility] Erythrocyte distribution width (RBC) [Ratio] 12.3 % 11.5 - 15.0 % [facility] Hematocrit (Bld) [Volume fraction] 38.1 % 35 - 47 % [facility] Hemoglobin (Bld) [Mass/Vol] 13.2 g/dL 11.7 - 15.5 g/dL [facility] Interpretation and review of laboratory results Abnormal [facility] Lymphocytes (Bld) [#/Vol] 4.3 10*3/uL High [facility] Lymphocytes/100 WBC (Bld) 41.1 % [facility] MCH (RBC) [Entitic mass] 30.4 pg 27 - 34 pg [facility] MCHC (RBC) [Mass/Vol] 34.7 g/dL 32 - 36 g/dL [facility] MCV (RBC) [Entitic vol] 88 fL 80 - 100 fL [facility] Monocytes (Bld) [#/Vol] 0.9 10*3/uL [facility] Monocytes/100 WBC (Bld) 9.0 % [facility] Neutrophils (Bld) [#/Vol] 4.9 10*3/uL [facility] Neutrophils/100 WBC (Bld) 46.9 % [facility] Platelet mean volume (Bld) [Entitic vol] 8.4 fL 7 - 12 fL [facility] Platelets (Bld) [#/Vol] 338 10*3/uL [facility] RBC (Bld) [#/Vol] 4.35 10*6/uL [facility] WBC corrected for nucl RBC Auto (Bld) [#/Vol] 10.5 [facility] COMPREHENSIVE METABOLIC PANE Hector 11-06-2023 Albumin [Mass/Vol] 4.2 g/dL Normal 3.2-5.3 [facility] Comment on above: Performed By: #### C BCA, CMP, 96070-5, TSHR, 74462-2, 9, 4-7 #### [facility] ([id number]) [address], [address] [place] [address] ALP [Catalytic activity/Vol] 67 U/L Normal 39-[address] [facility] Comment on above: Performed By: #### C BCA, CMP, 12700-9, TSHR, 17662-3, 9, 4-7 #### [facility] ([id number]) [address], [address] [place] [address] ALT [Catalytic activity/Vol] 30 U/L Normal 0-[address] [facility] Comment on above: Performed By: #### C BCA, CMP, 15531-7, TSHR, 18590-0, 9, 3023-7 #### [facility] ([id number]) [address], [address] [place] [address] Anion gap [Moles/Vol] 7 mmol/L Normal 5-[address] [facility] Comment on above: Performed By: #### C BCA, CMP, 87390-7, TSHR, 83305-6, 2131-9, 4-7 #### [facility] ([id number]) [address], [address] [place], [place] [address] AST [Catalytic activity/Vol] 19 U/L Normal 0-[address] [facility] Comment on above: Performed By: #### C BCA, CMP, 97836-6, TSHR, 55636-6, 9, 4-7 #### [facility] ([id number]) [address], [address] [place] [address] Bilirubin [Mass/Vol] 0.4 mg/dL Normal 0.3-1.[address] [facility] Comment on above: Performed By: #### C BCA, CMP, 64449-5, TSHR, 85068-4, 2132-04, 7 #### [facility] ([id number]) [address], [address] [place] [address] Calcium [Mass/Vol] 9.3 mg/dL Normal 8.5-10.5 [facility] Comment on above: Performed By: #### C BCA, CMP, 81674-3, TSHR, 21006-0, 2132-04, 3024-02 #### [facility] ([id number]) [address], [address] [place] [address] Chloride [Moles/Vol] 102 mmol/L Normal 98-[address] [facility] Comment on above: Performed By: #### C BCA, CMP, 18589-0, TSHR, 91246-3, 2132-04, 3024-02 #### [facility] ([id number]) [address], [address] [place] [address] CO2 [Moles/Vol] 27 mmol/L Normal 22-32 [facility] Comment on above: Performed By: #### C BCA, CMP, 31485-6, TSHR, 60266-9, 2132-04, 3024-02 #### [facility] ([id number]) [address] [place] [address] Creatinine [Mass/Vol] 0.65 mg/dL Normal 0.40-1.[address] [facility] Comment on above: Result Comment: METH OD TRACEABLE TO IDMS STANDARD Performed By: #### C BCA, CMP, 56293-9, TSHR, 49227-3, 2132-04, 7 #### [facility] ([id number]) [address], [address] [place] [address] eGFR (CKD-EPI) NON-RACE DEPENDENT >90 Normal >59 [facility] Comment on above: Result Comment: Reported eGFR is based on the CKD-EPI 2020 equation that does not use a race coefficient. Performed By: #### C BCA, CMP, 05343-7, TSHR, 24769-3, 9, 3023-7 #### [facility] ([id number]) [address], [address] [place] [address] Glucose [Mass/Vol] 97 mg/dL Normal 65-99 [facility] Comment on above: Performed By: #### C BCA, CMP, 73147-2, TSHR, 86764-3, 2132-04, 3023-7 #### [facility] ([id number]) [address] [place] [address] Potassium [Moles/Vol] 4.4 mmol/L Normal 3.5-5.[address] [facility] Comment on above: Performed By: #### C BCA, CMP, 12149-8, TSHR, 26594-2, 2132-04, 7 #### [facility] ([id number]) [address], [address] [place] [address] Protein [Mass/Vol] 7.3 g/dL Normal 6.0-8.0 [facility] Comment on above: Performed By: #### C BCA, CMP, 46728-3, TSHR, 03401-7, 2132-04, 3023-7 #### [facility] ([id number]) [address], [address] [place] [address] Sodium [Moles/Vol] 136 mmol/L Normal 134-146 [facility] Comment on above: Performed By: #### C BCA, CMP, 40975-6, TSHR, 53654-8, 2132-04, 3023-7 #### [facility] ([id number]) [address] [place] [address] Urea nitrogen [Mass/Vol] 16 mg/dL Normal 5-[address] [facility] Comment on above: Performed By: #### C BCA, CMP, 79947-3, TSHR, 95768-9, 2132-9, 3024-7 #### [facility] ([id number]) [address] [place] [address] Cobalamin (Vitamin B12) [Mas s/Vol]on 11-06-2023 [facility] Comprehensive metabolic pane hector 11-06-2023 Albumin [Mass/Vol] 4.2 g/dL 3.2 - 5.3 g/dL [facility] ALP [Catalytic activity/Vol] 67 U/L 39 - 130 U/L [facility] ALT No additional P-5'-P [Catalytic activity/Vol] 30 U/L 0 - 31 U/L [facility] Anion gap [Moles/Vol] 7 mmol/L 5 - 15 mmol/L [facility] AST [Catalytic activity/Vol] 19 U/L 0 - 41 U/L [facility] Bilirubin [Mass/Vol] 0.4 mg/dL 0.3 - 1.2 mg/dL [facility] Calcium [Mass/Vol] 9.3 mg/dL 8.5 - 10. 5 mg/dL [facility] Chloride [Moles/Vol] 102 mmol/L 98 - 109 mmol/L [facility] CO2 [Moles/Vol] 27 mmol/L 22 - 32 mmol/L [facility] Creatinine [Mass/Vol] 0.65 mg/dL 0.40 - 1.00 mg/dL [facility] Comment on above: METHOD TRACEABLE TO IDMS STANDARD eGFR (CKD-EPI)non-race dependent - PINF [facility] Comment on above: Reported eGFR is based on the CKD-EPI 2020 equation that does not use a race coefficient. Glucose [Mass/Vol] 97 mg/dL 65 - 99 mg/dL [facility] Potassium [Moles/Vol] 4.4 mmol/L 3.5 - 5.0 mmol/L [facility] Protein [Mass/Vol] 7.3 g/dL 6.0 - 8.0 g/dL [facility] Sodium [Moles/Vol] 136 mmol/L 134 - 146 mmol/L [facility] Urea nitrogen [Mass/Vol] 16 mg/dL 5 - 23 mg/dL [facility] FREE T4on 11-06-2023 Free T4 [Mass/Vol] 0.64 ng/dL Normal 0.61-1.60 [facility] Comment on above: Performed By: #### C ANDREW, CMP, 90021-2, TSHR, 37875-0, 9, 3023-7 #### [facility] ([id number]) [address] [place] [address] HGB A1C (GLYCO-HGB)on 2023 Glucose [Mass/Vol] 151 mg/dL Normal [facility] Comment on above: Performed By: #### C ANDREW, GHAZALA, 50101-8, TSHR, 06860-6, 2132-04, 3023-7 #### [facility] ([id number]) [address] [place] [address] HbA1c (Bld) [Mass fraction] 6.9 % High 4.4-5.[address] [facility] Comment on above: Result Comment: NOTE ADA Guidelines Result HgbA1c Normal : less than 5.7 % Prediabetes : 5.7 % to 6.4 % Diabetes : > 6.4 % Use with caution in patients with abnormal hemoglobin variants as the half-life of red blood cells and in vivo glycation rates are affected. Performed By: #### C BCA, CMP, 04621-8, TSHR, 74578-3, 9, 3023-7 #### [facility] ([id number]) [address] [place] [address] Hemoglobin A1con 11-06-2023 Average glucose Estimated from glycated hemoglobin (Bld) [Mass/Vol] 151 mg/dL [facility] HbA1c (Bld) [Mass fraction] 6.9 % High 4.4 - 5.6 % [facility] Comment on above: NOTE ADA Guidelines Result HgbA1c Normal : less than 5.7 % Prediabetes : 5.7 % to 6.4 % Diabetes : > 6.4 % Use with caution in patients with abnormal hemoglobin variants as the half-life of red blood cells and in vivo glycation rates are affected. Interpretation and review of laboratory results [facility]normal [facility] Lipid 1996 panelon 4 Cholesterol [Mass/Vol] 118 mg/dL Low 150 - 200 mg/dL [facility] Cholesterol in HDL [Mass/Vol] 60 mg/dL 39 - PINF mg/dL [facility] Comment on above: HDL <40 mg/dL - High Risk HDL > or = 40mg/dL- Desirable HDL >60 mg/dL - Negative Risk Cholesterol in LDL [Mass/Vol] 45 mg/dL NINF - 130 mg/dL [facility] Comment on above: LDL <100 mg/dL - Desirable LDL >160 mg/dL - High Risk Cholesterol in VLDL [Mass/Vol] 13 mg/dL 0 - 30 mg/dL [facility] Cholesterol.total/ Cholesterol in HDL [Mass ratio] 2.0 {ratio} 1.0 - 5.0 [facility] Interpretation and review of laboratory results Abnormal [facility] Triglyceride [Mass/Vol] 67 mg/dL 27 - 150 mg/dL [facility] Cholesterol [Mass/Vol] 118 mg/dL Low 150-[address] [facility] Comment on above: Performed By: #### C BCA, CMP, 89107-3, TSHR, 13947-0, 9, 3023-7 #### [facility] ([id number]) [address], [address] [place] [address] Cholesterol in HDL [Mass/Vol] 60 mg/dL Normal >[address] [facility] Comment on above: Result Comment: HDL <40 mg/dL - High Risk HDL > or = 40mg/dL- Desirable HDL >60 mg/dL - Negative Risk Performed By: #### C BCA, CMP, 39457-1, TSHR, 46995-4, 2132-04, 3023- #### [facility] ([id number]) [address] [place] [address] Cholesterol in LDL [Mass/Vol] 45 mg/dL Normal <[address] [facility] Comment on above: Result Comment: LDL <100 mg/dL - Desirable LDL >160 mg/dL - High Risk Performed By: ###Krystin Cardoza BCA, CMP, 17153-1, TSHR, 33864-0, 2132-04, 3023-7 #### [facility] ([id number]) [address] [place] [address] Cholesterol in VLDL [Mass/Vol] 13 mg/dL Normal 0-[address] [facility] Comment on above: Performed By: ###Krystin Cardoza BCA, CMP, 04985-9, TSHR, 79197-6, 2131-9, 3023-7 #### [facility] ([id number]) [address], [address] [place] [address] CHOLESTEROL:HDL 2.0 Normal 1.0-5.0 [facility] Comment on above: Performed By: #### C BCA, CMP, 99222-7, TSHR, 30554-5, 2131-9, 3024-7 #### [facility] ([id number]) [address] [place] [address] Triglyceride [Mass/Vol] 67 mg/dL Normal 27-[address] [facility] Comment on above: Performed By: #### C BCA, CMP, 98028-5, TSHR, 78284-2, 9, 4-7 #### [facility] ([id number]) [address] [place] [address] No Panel Informationon 11-05 [facility] TSH WITH REFLEXon 11-06-2023 TSH 4.85 uIU/mL High 0.49-4.67 [facility] Comment on above: Performed By: #### C BCA, CMP, 20115-4, TSHR, 32856-2, 9, 3023-7 #### [facility] ([id number]) [address] [place] [address] TSH with Reflexon 11-06-2023 Interpretation and review of laboratory results Abnormal [facility] TSH Qn 4.85 m[IU]/L High [facility] VITAMIN B12on 11-06-2023 Cobalamin (Vitamin B12) [Mass/Vol] 615 pg/mL Normal 180-[address] [facility] Comment on above: Performed By: #### C BCA, CMP, 63248-6, TSHR, 81273-3, 9, 3024-7 #### [facility] ([id number]) [address] [place] [address] Vitamin B12on 11-06-2023 Cobalamin (Vitamin B12) [Mass/Vol] 615 pg/mL 180 - 914 pg/mL [facility] Vitamin D 25 hydroxyon 11-05 Vitamin D+Metabolites [Mass/Vol] 26.1 ng/mL Low 30 - 100 ng/mL [facility] Comment on above: Vitamin D status 25 [place] Vitamin D Deficiency <20 ng/mL Insufficiency 20-29 ng/mL Sufficiency 30-100 ng/mL Toxicity >100 ng/mL NOTE: A pediatric reference range has not been established by the cork wirer of this kit. The [place] [employer] recommends a Vitamin D level of = or >20ng/mL in infants and children. Vitamin D+Metabolites [Mass/ Vol]on 11-06-2023 Interpretation and review of laboratory results Abnormal [facility] VITAMIN D 25 HYD TOT 26.1 ng/mL Low 30-[address] [facility] Comment on above: Result Comment: Vitamin D status 25 [place] Vitamin D Deficiency <20 ng/mL Insufficiency 20-29 ng/mL Sufficiency 30-100 ng/mL Toxicity >100 ng/mL NOTE: A pediatric reference range has not been established by the cork wirer of this kit. The [employer] [employer] recommends a Vitamin D level of = or >20ng/mL in infants and children. Performed By: #### C BCA, [facility], 02823-6, TSHR, 17026-8, 2132-9, 3024-7 #### [facility] ([id number]) [address], [address] [place] [address] Vital Signs Date Time Vital Sign Value Performing Clinician Facility 08-11-2024 15:09-0500 Body height 170.2 cm Raheem LEVY Work Phone: [facility] 08-11-2024 15:09-0500 Body mass index (BMI) [Ratio] 50.84 kg/m2 Raheem Youssef APRN-CORPORATE DIRECTOR TALENT ASSESSMENT Work Phone: [facility] 08-11-2024 15:09-0500 Body temperature 97.81 [degF] Raheem Youssef CLAIMS DIRECTOR-CORPORATE DIRECTOR TALENT ASSESSMENT Work Phone: [facility] 08-11-2024 15:09-0500 Body weight 147.24 kg Raheem Youssef CLAIMS DIRECTOR-CORPORATE DIRECTOR TALENT ASSESSMENT Work Phone: [facility] 08-11-2024 15:09-0500 Diastolic blood pressure 80 mm[Hg] Raheem Youssef CLAIMS DIRECTOR-CORPORATE DIRECTOR TALENT ASSESSMENT Work Phone: [facility] 08-11-2024 15:09-0500 Heart rate 99 /min Raheem Youssef CLAIMS DIRECTOR-CORPORATE DIRECTOR TALENT ASSESSMENT Work Phone: [facility] 08-11-2024 15:09-0500 SaO2% (BldA) [Mass fraction] 97 % Raheem Youssef CLAIMS DIRECTOR-CORPORATE DIRECTOR TALENT ASSESSMENT Work Phone: [facility] 08-11-2024 15:09-0500 Systolic blood pressure 132 mm[Hg] Raheem Youssef CLAIMS DIRECTOR-CORPORATE DIRECTOR TALENT ASSESSMENT Work Phone: [facility] 02-25-2024 11:41-0400 Body height 170.2 cm Scott Edwards CLAIMS DIRECTOR-CORPORATE DIRECTOR TALENT ASSESSMENT Work Phone: [facility] 02-25-2024 11:41-0400 Body mass index (BMI) [Ratio] 50.93 kg/m2 Scott Edwards CLAIMS DIRECTOR-CORPORATE DIRECTOR TALENT ASSESSMENT Work Phone: [facility] 02-25-2024 11:41-0400 Body weight 147.51 kg Scott Edwards CLAIMS DIRECTOR-CORPORATE DIRECTOR TALENT ASSESSMENT Work Phone: [facility] 02-25-2024 11:41-0400 Diastolic blood pressure 77 mm[Hg] Scott Leónoll CLAIMS DIRECTOR-CORPORATE DIRECTOR TALENT ASSESSMENT Work Phone: [facility] 02-25-2024 11:41-0400 Heart rate 91 /min Scott Leónoll CLAIMS DIRECTOR-CORPORATE DIRECTOR TALENT ASSESSMENT Work Phone: [facility] 02-25-2024 11:41-0400 Systolic blood pressure 142 mm[Hg] Scott Edwards CLAIMS DIRECTOR-CORPORATE DIRECTOR TALENT ASSESSMENT Work Phone: [facility] 02-09-2024 14:39-0400 Body height 170.2 cm Raheem Youssef CLAIMS DIRECTOR-CORPORATE DIRECTOR TALENT ASSESSMENT Work Phone: [facility] 02-09-2024 14:39-0400 Body mass index (BMI) [Ratio] 50.93 kg/m2 Raheem Youssef CLAIMS DIRECTOR-CORPORATE DIRECTOR TALENT ASSESSMENT Work Phone: [facility] 02-09-2024 14:39-0400 Body temperature 98.2 [degF] Raheem Youssef CLAIMS DIRECTOR-CORPORATE DIRECTOR TALENT ASSESSMENT Work Phone: [facility] 02-09-2024 14:39-0400 Body weight 147.51 kg Raheem Youssef CLAIMS DIRECTOR-CORPORATE DIRECTOR TALENT ASSESSMENT Work Phone: [facility] 02-09-2024 14:39-0400 Diastolic blood pressure 78 mm[Hg] Raheem Youssef CLAIMS DIRECTOR-CORPORATE DIRECTOR TALENT ASSESSMENT Work Phone: [facility] 02-09-2024 14:39-0400 Heart rate 87 /min Raheem Youssef CLAIMS DIRECTOR-CORPORATE DIRECTOR TALENT ASSESSMENT Work Phone: [facility] 02-09-2024 14:39-0400 Respiratory rate 18 /min Raheem Youssef CLAIMS DIRECTOR-CORPORATE DIRECTOR TALENT ASSESSMENT Work Phone: [facility] 02-09-2024 14:39-0400 SaO2% (BldA) [Mass fraction] 98 % Raheem Youssef CLAIMS DIRECTOR-CORPORATE DIRECTOR TALENT ASSESSMENT Work Phone: [facility] 02-09-2024 14:39-0400 Systolic blood pressure 126 mm[Hg] Raheem Youssef CLAIMS DIRECTOR-CORPORATE DIRECTOR TALENT ASSESSMENT Work Phone: [facility] 01-26-2024 09:46-0400 Body height 170.18 cm [facility] 01-26-2024 09:46-0400 Body temperature 97.7 [degF] [facility] 01-26-2024 09:46-0400 Body weight 148.6 kg [facility] 01-26-2024 09:46-0400 Diastolic blood pressure 82 mm[Hg] [facility] 01-26-2024 09:46-0400 Heart rate 65 /min [facility] 01-26-2024 09:46-0400 Respiratory rate 20 /min [facility] 01-26-2024 09:46-0400 SaO2% (BldA) [Mass fraction] 95 % [facility] 01-26-2024 09:46-0400 Systolic blood pressure 131 mm[Hg] [facility] 11-06-2023 14:16-0400 Body height 167.6 cm Raheem Youssef CLAIMS DIRECTOR-CORPORATE DIRECTOR TALENT ASSESSMENT Work Phone: [facility] 11-06-2023 14:16-0400 Body mass index (BMI) [Ratio] 52.16 kg/m2 Raheem Youssef CLAIMS DIRECTOR-CORPORATE DIRECTOR TALENT ASSESSMENT Work Phone: [facility] 11-06-2023 14:16-0400 Body temperature 98.6 [degF] Raheem Youssef CLAIMS DIRECTOR-CORPORATE DIRECTOR TALENT ASSESSMENT Work Phone: [facility] 11-06-2023 14:16-0400 Body weight 146.51 kg Raheem Youssef CLAIMS DIRECTOR-CORPORATE DIRECTOR TALENT ASSESSMENT Work Phone: [facility] 11-06-2023 14:16-0400 Diastolic blood pressure 74 mm[Hg] Raheem Youssef CLAIMS DIRECTOR-CORPORATE DIRECTOR TALENT ASSESSMENT Work Phone: [facility] 11-06-2023 14:16-0400 Heart rate 80 /min Raheem Youssef CLAIMS DIRECTOR-CORPORATE DIRECTOR TALENT ASSESSMENT Work Phone: [facility] 11-06-2023 14:16-0400 SaO2% (BldA) [Mass fraction] 98 % Raheem Youssef CLAIMS DIRECTOR-CORPORATE DIRECTOR TALENT ASSESSMENT Work Phone: [facility] 11-06-2023 14:16-0400 Systolic blood pressure 128 mm[Hg] Raheem Youssef CLAIMS DIRECTOR-CORPORATE DIRECTOR TALENT ASSESSMENT Work Phone: [facility] 07-31-2023 14:03-0500 Body height 167.6 cm [facility] 07-31-2023 14:03-0500 Body mass index (BMI) [Ratio] 48.74 kg/m2 [facility] 07-31-2023 14:03-0500 Body weight 136.99 kg [facility] 07-31-2023 14:03-0500 Diastolic blood pressure 80 mm[Hg] [facility] 07-31-2023 14:03-0500 Systolic blood pressure 120 mm[Hg] [facility] 07-24-2023 14:29-0500 Body height 167.6 cm Raheem Adelso CLAIMS DIRECTOR-CORPORATE DIRECTOR TALENT ASSESSMENT Work Phone: [facility] 07-24-2023 14:29-0500 Body mass index (BMI) [Ratio] 48.42 kg/m2 Raheem Adelso CLAIMS DIRECTOR-CORPORATE DIRECTOR TALENT ASSESSMENT Work Phone: [facility] 07-24-2023 14:29-0500 Body temperature 97.9 [degF] Raheem Adelso CLAIMS DIRECTOR-CORPORATE DIRECTOR TALENT ASSESSMENT Work Phone: [facility] 07-24-2023 14:29-0500 Body weight 136.08 kg Raheem Youssef CLAIMS DIRECTOR-CORPORATE DIRECTOR TALENT ASSESSMENT Work Phone: [facility] 07-24-2023 14:29-0500 Diastolic blood pressure 68 mm[Hg] Raheem Youssef CLAIMS DIRECTOR-CORPORATE DIRECTOR TALENT ASSESSMENT Work Phone: [facility] 07-24-2023 14:29-0500 Heart rate 97 /min Raheem Youssef CLAIMS DIRECTOR-CORPORATE DIRECTOR TALENT ASSESSMENT Work Phone: [facility] 07-24-2023 14:29-0500 SaO2% (BldA) [Mass fraction] 98 % Raheem Youssef CLAIMS DIRECTOR-CORPORATE DIRECTOR TALENT ASSESSMENT [facility] 07-24-2023 14:29-0500 Systolic blood pressure 124 mm[Hg] Raheem Youssef CLAIMS DIRECTOR-CORPORATE DIRECTOR TALENT ASSESSMENT [facility] Phone[facility] En[facility] Encounter Date Encounter Type Care Provider Facility Start: 08-11-2024 End: 08-11-2024 ambulatory [facility] Start: 08-11-2024 End: 08-11-2024 Office outpatient visit 25 minutes Raheem Youssef CLAIMS DIRECTOR-CORPORATE DIRECTOR TALENT ASSESSMENT [facility] Comment on above: Controlled type 2 di abetes mellitus without complication, without long-term current use of insulin ([facility]) (Primary Dx); Vazquez's esophagus without dysplasia Start: 08-10-2024 End: 08-10-2024 ambulatory Paddy Lee [facility] Work Phone: Start: 08-10-2024 End: 08-10-2024 Departed Referred Paddy Lee DO [facility] Start: 04-18-2024 End: 04-18-2024 Patient encounter status Raheem Youssef CLAIMS DIRECTOR-CORPORATE DIRECTOR TALENT ASSESSMENT Work Phone: [facility] Start: 04-18-2024 End: 04-18-2024 Refill Raheem Youssef CLAIMS DIRECTOR-CORPORATE DIRECTOR TALENT ASSESSMENT [facility] Phone: [facility] Comment on above: Wellness examination Start: 03-08-2024 End: 03-08-2024 Telephone encounter Ngozi Coffey CMA [facility] Start: 03-05-2024 End: 03-05-2024 Evaluation and management of inpatient RENETTA MELENDREZ [facility] Start: 03-04-2024 End: 03-05-2024 Evaluation and management of inpatient DAVID COLE [facility] Start: 02-26-2024 End: 02-26-2024 ambulatory THERESA MAYERS [facility] Start: 02-26-2024 Encounter for other preprocedural examination [facility] Start: 02-26-2024 End: 02-26-2024 Patient encounter procedure [facility] Pre-Admission Testing 2 [facility] - Pre Admit Comment on above: Preop examination (P rimary Dx); Morbid obesity with BMI of 50.0-59.9, adult ([facility]); Type 2 diabetes mellitus without complication, unspecified whether salvage determiner insulin use ([facility]) Start: 02-26-2024 End: 02-26-2024 Preprocedural examination done [facility] 2 [facility] Start: 02-25-2024 End: 02-25-2024 Office outpatient new [facility] DIRECTOR-CORPORATE DIRECTOR TALENT ASSESSMENT Work Phone: [facility] Comment on above: History of Vazquez's esophagus (Primary Dx); Body mass index (BMI) of 50-59.9 in adult ([facility]); Current every day vaping Start: 02-25-2024 End: 02-25-2024 ambulatory [facility] Start: 02-23-2024 End: 02-23-2024 Orders Only Raheem Youssef CLAIMS DIRECTOR-CORPORATE DIRECTOR TALENT ASSESSMENT Work Phone: [facility] Comment on above: History of Vazquez's esophagus (Primary Dx) Start: 02-09-2024 End: 02-09-2024 Office outpatient visit 15 minutes Raheem Youssef CLAIMS DIRECTOR-CORPORATE DIRECTOR TALENT ASSESSMENT Work Phone: [facility] Comment on above: Controlled type 2 di abetes mellitus without complication, without long-term current use of insulin ([facility]) (Primary Dx); Family history of cirrhosis of liver Start: 02-09-2024 End: 02-09-2024 ambulatory [facility] Start: 01-26-2024 End: 01-26-2024 Orders Only Raheem Youssef CLAIMS DIRECTOR-CORPORATE DIRECTOR TALENT ASSESSMENT Work Phone: [facility] Start: 01-26-2024 End: 01-26-2024 Emergency department patient visit [facility] Work Phone: Start: 01-23-2024 End: 01-23-2024 Refill Raheem Youssef CLAIMS DIRECTOR-CORPORATE DIRECTOR TALENT ASSESSMENT Work Phone: [facility] Comment on above: Prediabetes Start: 12-16-2023 End: 12-16-2023 Orders Only Raheem Youssef CLAIMS DIRECTOR-CORPORATE DIRECTOR TALENT ASSESSMENT Work Phone: [facility] Comment on above: Prediabetes (Primary Dx) Start: 12-10-2023 End: 12-10-2023 ambulatory [facility] Start: 12-10-2023 Encounter for gynecological examination (general) (routine) without abnormal findings [facility] Start: 12-10-2023 End: 12-10-2023 ambulatory [facility] Start: 11-07-2023 Orders Only Raheem nieves CLAIMS DIRECTOR-CORPORATE DIRECTOR TALENT ASSESSMENT Work Phone: [facility] Start: 11-06-2023 End: 11-06-2023 Patient encounter status Raheem Youssef CLAIMS DIRECTOR-CORPORATE DIRECTOR TALENT ASSESSMENT Work Phone: [facility] [employer] Work Phone: Start: 11-06-2023 End: 11-06-2023 Periodic preventive med est patient 18-39 yrs Raheem Youssef CLAIMS DIRECTOR-CORPORATE DIRECTOR TALENT ASSESSMENT Work Phone: [facility] Comment on above: Wellness examination (Primary Dx); Prediabetes; Migraine without aura and with status migrainosus, not intractable Start: 11-06-2023 End: 11-06-2023 ambulatory [facility] Start: 11-06-2023 Encounter for genera l adult medical examination without abnormal findings [facility] Start: 09-04-2023 End: 10-03-2023 ambulatory [facility] Start: 08-08-2023 End: 09-04-2023 ambulatory AINSLEY M ALEX [facility] Start: 07-31-2023 End: 07-31-2023 Office outpatient new 30 minutes [facility] Comment on above: Encounter for IUD re moval (Primary Dx); Stress incontinence of urine Start: 07-24-2023 End: 07-24-2023 Office outpatient new 45 minutes Raheem Youssef CLAIMS DIRECTORAnapa BiotechCORPORATE DIRECTOR TALENT ASSESSMENT Work Phone: [facility] Comment on above: Stress incontinence of urine (Primary Dx); Family planning, IUD (intrauterine device) check/reinsertion/removal; Prediabetes; Migraine without aura and with status migrainosus, not intractable Procedures Date Procedure Procedure Detail Performing Clinician Start: 08-11-2024 Hemoglobin glycosyla elif a1c Raheem Youssef CLAIMS DIRECTORAnapa [facility]otechV[facility] Work Phone: Start: 08-11-2024 Follow-up visit Follow-up GENA YOUSSEF Start: 02-09-2024 Adult depression scr eening assessment Raheem Youssef CLAIMS DIRECTOR-[facility] Work Phone: Start: 01-26-2024 Plain chest X-ray Start: 12-10-2023 Adult depression scr eening assessment Raheem Youssef CLAIMS DIRECTOR-[facility] Work Phone: Start: 12-10-2023 Microscopic observat ion [Identifier] in Cervix by Cyto stain Raheem Youssef CLAIMS DIRECTORAnapa BiotechVIB[facility] Work Phone: Start: 07-24-2023 Adult depression scr eening assessment Raheem Youssef CLAIMS DIRECTORAnapa BiotechVIBRA [facility] Work Phone: Plan of Treatment Date Care Activity Detail Author Start: 12-09-2026 Screening for malignant neoplasm of cervix Pap Smear [facility] Start: 08-11-2025 Adult BMI Screening Adult BMI Screening [facility] Start: 08-11-2025 Tobacco Screening Tobacco Screening [facility] Start: 03-04-2025 Adult BMI Screening Adult BMI Screening [facility] Start: 03-04-2025 Tobacco Screening Tobacco Screening [facility] Start: 02-25-2025 Tobacco Screening Tobacco Screening [facility] Start: 02-24-2025 Adult BMI Screening Adult BMI Screening [facility] Start: 02-24-2025 Tobacco Screening Tobacco Screening [facility] Start: 02-14-2025 Tobacco Screening Tobacco Screening [facility] Start: 02-08-2025 Adult BMI Screening Adult BMI Screening [facility] Start: 02-08-2025 Depression Screening Depression Screening [facility] Start: 02-08-2025 Tobacco Screening Tobacco Screening [facility] Start: 12-09-2024 End: 12-09-2024 Patient encounter procedure 12/09/2024 3:00 PM EDT Off ice Visit [facility] [address] [place] [address], [place] [address] Raheem Youssef CLAIMS DIRECTOR-CORPORATE DIRECTOR TALENT ASSESSMENT [address] [place] [phone] [facility] Start: 12-09-2024 Adult BMI Follow Up Plan Adult BMI Follow Up Plan [facility] Start: 12-09-2024 Adult BMI Screening Adult BMI Screening [facility] Start: 12-09-2024 Depression Screening Depression Screening [facility] Start: 12-09-2024 Tobacco Screening Tobacco Screening [facility] Start: 11-05-2024 Adult BMI Screening Adult BMI Screening [facility] Start: 11-05-2024 Tobacco Screening Tobacco Screening [facility] Start: 08-11-2024 End: 08-11-2024 Patient encounter procedure 08/11/2024 2:15 PM EST Off ice Visit [facility] [address] [facility] [phone] Raheem Youssef CLAIMS DIRECTOR-CORPORATE DIRECTOR TALENT ASSESSMENT [address] [place] [phone] [facility] Start: 08-10-2024 Bacteria identified in Urine by Culture Urine Culture [facility] Start: 08-10-2024 Urine culture [facility] Start: 07-31-2024 Adult BMI Screening Adult BMI Screening [facility] Start: 07-31-2024 Tobacco Screening Tobacco Screening [facility] Start: 07-24-2024 Adult BMI Screening Adult BMI Screening [facility] Start: 07-24-2024 Depression Screening Depression Screening [facility] Start: 07-24-2024 Tobacco Screening Tobacco Screening [facility] Start: 04-04-2024 Influenza vaccination Influenza Vaccine [facility] Start: 03-04-2024 End: 03-04-2024 Admission to same day surgery center 03/04/2024 9:45 AM EDT - 03/04/2024 10:15 AM EDT Surgery [facility] [address] [place] [address] David Cole, DO [address] [place], [place] [phone] ESOPHAGOGASTRODUODENOSCOPY DIAGNOSTIC [33491 (CPT )] [facility] Comment on above: ESOPHAGOGASTRODUODENOSCOPY DIAGNOSTIC [4 3235 (CPT )] Start: 03-04-2024 End: 03-04-2024 Esophagogastroduodenoscopy transoral diagnostic ESOPHAGOGASTRODUODENOSCOPY DIAGNOSTIC vazquez's esophagus 03/04/2024 9:45 AM EDT [facility] Start: 03-04-2024 Subsequent hospital visit by physician 03/04/2024 9:45 AM EDT Hospital Encounter [facility] [address] [place] [address] David Cole, DO [address] [place], [place] [phone] [facility] Start: 02-26-2024 End: 02-26-2024 Patient encounter procedure 02/26/2024 2:15 PM EDT Procedure visit [facility] [address] [place] [address] [facility] Start: 02-09-2024 End: 02-09-2024 Patient encounter procedure 02/09/2024 2:45 PM EDT Off ice Visit [facility] [address] [place] [phone] Raheem Youssef, CLAIMS DIRECTOR-CORPORATE DIRECTOR TALENT ASSESSMENT [address], [place] [address] [facility] Start: 10-23-2023 End: 10-23-2023 Patient encounter procedure 10/23/2023 9:45 AM EDT Off ice Visit [facility] [address] [place] [address] Raheem Youssef, CLAIMS DIRECTOR-CORPORATE DIRECTOR TALENT ASSESSMENT [address] [id number] [facility] Start: 08-07-2023 End: 08-07-2023 Patient encounter procedure 08/07/2023 2:30 PM EST Off ice Visit [facility] [place] [address] [place] [place] [address] [facility] [place] Start: 04-04-2023 Influenza vaccination Influenza Vaccine [facility] Start: 2009 Screening for malignant neoplasm of cervix Pap Smear [facility] Start: 12-12-2007 DTaP,Tdap and Td Vaccines (1 - Tdap) DTaP,Tdap and Td Vaccines (1 - Tdap) [facility] Start: 2006 Adult BMI Follow Up Plan Adult BMI Follow Up Plan [facility] Start: 2006 Diabetic foot examination Diabetic Foot Exam [facility] Start: 1988 Glaucoma screening Diabetic Ophthalmology Exam [facility] Start: 1988 Urine screening for protein Urine Microalbumin [facility] End: 02-08-2025 ABO/Rh ABO/Rh Blood Bank Routine Family history of cirrhosis of liver 1 Occurrences starting 02/09/2024 until 02/08/2025 [facility] Comment on above: 1 Occurrences starting 02/09/2024 until 02/08/2025 End: 02-24-2025 Esophagogastroduodenoscopy EGD GI Routine History of Vazquez's esophagus 1 Occurrences starting 02/25/2024 until 02/24/2025 [facility] Work Phone: Comment on above: 1 Occurrences starting 02/25/2024 until 02/24/2025 End: 02-08-2025 Hemoglobin A1c/Hemoglobin.total in Blood Hemoglobin A1c Lab Routine Controlled type 2 diabetes mellitus without complication, without long-term current use of insulin ([facility]) 1 Occurrences starting 02/09/2024 until 02/08/2025 [facility] Comment on above: 1 Occurrences starting 02/09/2024 until 02/08/2025 End: 02-08-2025 Hepatitis panel, acute Hepatitis panel, acute Lab Routine Family history of cirrhosis of liver 1 Occurrences starting 02/09/2024 until 02/08/2025 [facility] Work Phone: Comment on above: 1 Occurrences starting 02/09/2024 until 02/08/2025 Patient Education Active Range o f Motion Exercises, Neck and Shoulders Muscle Spasm ED [facility] Work Phone: Patient referral [facility] Work Phone: Payers Date Payer Category Payer Self-pay [id number] 2023 Medicaid [id number] 2023 Medicaid [id number] 1988 Unknown [id number] 2.16.8 [id number] 1988 Unknown [id number] 2.16.8 40.1.483752.3.579.2.1286 1988 Unknown [id number] 2.16.8 40.1.468725.3.579.2.1285 1988 Unknown [id number] 2.16.8 40.1.326661.3.579.2.1285 1988 Unknown [id number] 2.16.8 40.1.357446.3.579.2.1285 1988 Unknown [id number] 2.16.8 40.1.335145.3.579.2.1285 1988 Unknown [id number] 2.16.8 40.1.602461.3.579.2.1285 1988 Unknown [id number] 2.16.8 40.1.077730.3.579.2.1285 1988 Unknown [id number] 2.16.8 40.1.012804.3.579.2.1285 1988 Unknown [id number] 2.16.8 40.1.525067.3.579.2.1285 1988 Unknown [id number] 2.16.8 40.1.177279.3.579.2.1285 1988 Unknown [id number] 2.16. 840.1.683625.3.579.2.1285 1988 Unknown [id number] 2.16.8 40.1.903155.3.579.2.1285 1988 Unknown [id number] 2.16.8 40.1.374946.3.579.2.1285 1988 Unknown [id number] 2.16.8 40.1.651570.3.579.2.1285 1988 Unknown [id number] 2.16.8 40.1.644436.3.579.2.128 Unknown [facility] [id number] Unknown [id number] 2.16.8 40.1.252135.3.579.2.531 Unknown [id number] 2.16.8 40.1.483769.3.579.2.531 Social History Date Type Detail Facility Start: 08-04-2004 End: 01-26-2024 Tobacco smoking status NHIS Smoker (finding) [facility] Start: 1990 Sex Assigned At Female [facility] Start: 07-09-2023 End: 08-12-2024 Sex Female (finding) [facility] Start: 07-24-2023 End: 02-25-2024 Tobacco smoking status NHIS Ex-smoker [facility] Start: 08-04-2004 History of tobacco use Cigarette Smo ker [facility] Start: 02-09-2024 End: 02-25-2024 Cigarettes smoked current (pack per day) - Reported 1 [facility] Start: 07-24-2023 End: 02-25-2024 Tobacco use and exposure Smokeless tobacco non-user [facility] Start: 03-05-2024 End: 08-15-2024 Alcoholic beverage intake Ex-drinker (finding) [facility] Start: 02-25-2024 End: 08-11-2024 Tobacco use panel [facility] Adolescent depressio n screening assessment 0 [facility] Start: 07-31-2023 Alcohol Comment rare [facility] Start: 1988 Sex assigned at Not on file [facility] Start: 07-31-2023 End: 11-06-2023 Alcohol intake Current drinker of alcohol (finding) [facility] Medical Equipment Procedure Code Equipment Code Equipment Origin al Text Equipment Identifier Dates Test once daily and as needed. [id number] Start: 02-09-2024 Test once daily and as needed [id number] Start: 02-09-2024 Clinical Notes 07-24-2023 to 08-11-2024 Raheem Youssef APRN-CORPORATE DIRECTOR TALENT ASSESSMENT - 08/11/2024 3:00 PM ESTTelephone Encounter - Ngozi Coffey, [facility] - 03/08/2024 11:16 AM EDTTelephone Encounter - Ngozi Coffey, [facility] - 03/08/2024 11:16 AM EDTPatient Instructions Note Date & Type Note Facility 08-11-2024 History of Presen t illness Narrative Subjective Patient ID: Emilee Hood is a 33 y.o. female. HPI Emilee presents to the office for DM follow up. HgbA1c was 6.9% on 11/06/2023. She has been taking the metformin and trulicity. She is tolerating this well. Emilee continues to work on diet and exercise for DM and for weight. Today 6.5%. She was diagnosed with barrets esophagitis and had EGD with Dr. Cole' office on 03/04/2024. Repeat due at 3 years. She reports she continues with heart burn despite taking daily omeprazole. She reports she has been taking care of grandma and moved near her. She reports she went to [facility] yesterday. She does have UTI, she is on keflex. The following portions of the patient's history were reviewed and updated as appropriate: allergies, current medications, past family history, past medical history, past social history, past surgical history, problem list, and medication reconciliation was completed including current medication and post discharge medication. Review of Systems Constitutional: Negative for chills, diaphoresis, fatigue, fever and unexpected weight change. HENT: Negative. Eyes: Negative. Respiratory: Negative for cough, chest tightness, shortness of breath and wheezing. Cardiovascular: Negative for chest pain, palpitations and leg swelling. Gastrointestinal: Negative for abdominal pain, diarrhea, nausea and vomiting. Endocrine: Negative for polydipsia, polyphagia and polyuria. Genitourinary: Negative for difficulty urinating, frequency, hematuria and urgency. Musculoskeletal: Negative for arthralgias, gait problem, joint swelling and neck pain. Skin: Negative. Neurological: Negative for dizziness, syncope, weakness, light-headedness, numbness and headaches. Psychiatric/Behavioral: Negative for self-injury and suicidal ideas. Objective Physical Exam Vitals and nursing note reviewed. Constitutional: General: She is not in acute distress. Appearance: Normal appearance. She is not ill-appearing. HENT: Head: Normocephalic and atraumatic. Eyes: Extraocular Movements: Extraocular movements intact. Pupils: Pupils are equal, round, and reactive to light. Cardiovascular: Rate and Rhythm: Normal rate and regular rhythm. Pulses: Normal pulses. Heart sounds: Normal heart sounds. Pulmonary: Effort: Pulmonary effort is normal. Breath sounds: Normal breath sounds. Abdominal: General: Bowel sounds are normal. Palpations: Abdomen is soft. Musculoskeletal: Cervical back: Normal range of motion and neck supple. Right lower leg: No edema. Left lower leg: No edema. Skin: Capillary Refill: Capillary refill takes less than 2 seconds. Findings: No erythema or rash. Neurological: General: No focal deficit present. Mental Status: She is alert and oriented to person, place, and time. Psychiatric: Mood and Affect: Mood normal. Behavior: Behavior normal. Assessment/Plan Continue with lifestyle modifications. Change trulicty to ozempic for possible side effects. Increase omeprazole to BID for 8 weeks, then decrease back to once daily. Ensure to keep up with next EGD due at 3 years. Continue to monitor BS. Increase metformin to 1,000 mg BID. FU 4 months for wellness and DM. Emilee was seen today for follow-up. Diagnoses and all orders for this visit: Controlled type 2 diabetes mellitus without complication, without long-term current use of insulin ([facility]) - POCT Hemoglobin A1c - semaglutide (OZEMPIC) 0.25 mg or 0.5 mg (2 mg/3 mL) pen injector; Inject 0.5 mg under the skin every 7 days. Vazquez's esophagus without dysplasia - omeprazole (PriLOSEC) 40 mg capsule; Take 1 capsule (40 mg total) by mouth in the morning and 1 capsule (40 mg total) before bedtime. Other orders - metFORMIN (GLUCOPHAGE) 1000 mg tablet; Take 1 tablet (1,000 mg total) by mouth in the morning and 1 tablet (1,000 mg total) in the evening. Take with meals. Do all this for 90 days. MILDRED Keith 08/15/24 1414 documented in this encounter [facility] 03-08-2024 Miscellaneous Notes ----- Message from Dr. David Cole DO sent at 03/08/2024 9:57 AM EDT ----- Please let patient know that she continues to have Vazquez's esophagus and I recommend repeat endoscopy in 3 years for surveillance. She should increase her proton pump inhibitor which I spoke to her about prior to discharge to twice daily to control her symptoms and if not controlled let us know or PCP. Make sure she gets a handout on Vazquez's esophagus as well. ThanksDr. Fernando Spoke with patient regarding pathology results. Patient verbally understood with no further questions. Informed patient to contact her PCP to adjust her PPI dosage if needed. Will mail patient information regarding Vazquez's Esophagus. documented in this encounter [facility] 03-08-[facility]24 Telephone encounter Note ----- Message from Dr. David Cole, sent at 03/08/2024 9:57 AM EDT ----- Please let patient know that she continues to have Vazquez's esophagus and I recommend repeat endoscopy in 3 years for surveillance. She should increase her proton pump inhibitor which I spoke to her about prior to discharge to twice daily to control her symptoms and if not controlled let us know or PCP. Make sure she gets a handout on Vazquez's esophagus as well. ThanksDr. Fernando [facility] 03-08-2024 Telephone encounter Note Spoke with patient regarding pathology results. Patient verbally understood with no further questions. Informed patient to contact her PCP to adjust her PPI dosage if needed. Will mail patient information regarding Vazquez's Esophagus. [facility] 02-26-2024 Instructions Shannan Mariee RN - 02/26/2024 2:15 PM EDT Preoperative Education Checklist- General Surgery date: 03/04/24 Surgery time: 945a Arrival time: 745a 1. Bring a photo ID and your insurance card with you the day of surgery. You will check in at the main lobby of the [facility] [place]- registration desk is straight ahead as soon as you walk in. Tell them you are here for surgery. 2. If you have a Living Will/Durable Power of [employer] for Health Care that is not on file here, please bring a copy the day of surgery. 3. Please shower/bathe the night before surgery with the provided soap or wipes. Do not shower the morning of surgery- you will do use wipes when you arrive here at the hospital before getting into your surgical gown. Do not shave the area of your procedure for 2 days prior to your surgery. 4. NO powder, lotion, perfume/cologne, aftershave, make-up, deodorant, or hair products after you have bathed. 5. NO nail belgian/acrylic on at least one finger. If you are having a hand, wrist or foot surgery then all nail belgian and artificial/acrylic nails must be removed from that hand or foot. 6. Avoid ALL Aspirin and non-steroidal anti-inflammatory drugs and certain vitamins (Ibuprofen, Advil, Aleve, Excedrin, Meloxicam, Celebrex, fish/krill oil, etc.) for 7 days prior to surgery as instructed by your surgeon and/or your prescribing doctor. Tylenol IS ALLOWED. If you are on Ticlid, Xarelto, Eliquis, Pradaxa, Plavix or Coumadin, please check with your prescribing doctor for instructions for when to stop them. 7. If you use an inhaler, continue to use it routinely. 8. Nothing to eat or drink (not even water, gum, mints, or hard candy!) AFTER midnight prior to your surgery. 9. Take only medications that you are instructed to on the morning of surgery with a TINY SIP OF WATER. 10. Choose a responsible adult that will be able to drive you home when you are discharged from your hospital stay for your surgery and can stay with you in your home for 24 hours after your procedure. You must NOT drive any vehicle or operate any machinery for 24 hours after surgery. 11. When you dress for your appointment, please wear loose fitting clothing that is appropriate to accommodate your surgical area procedure. BRING WITH YOU ANY DEVICES YOU MAY NEED: ELIF hose, ice machine, sling/swath, brace or special shoe, oversized zip-up or button up shirt, CPAP machine if staying overnight. 12. Do NOT wear jewelry, watches, or any piercings or metal for surgery- leave these valuables and money at home. 13. Do NOT wear contact lenses for surgery- glasses are okay if needed. 14. The anesthesiologist will talk with you the day of surgery and will ask you to sign a Consent Form. 15. Refrain from smoking or any type of tobacco use for at least 8 hours and marijuana for 24 hours prior to arrival for your surgery. 16. If a GREEN BLOOD band is given to you, please bring it with you for the day of surgery. 17. Notify your surgeon if you develop any illness before your surgery. 18. If you are staying overnight, please DO NOT BRING your home medications with you. 19. If you have any questions prior to surgery, please call the Preadmission Testing office at [phone], Mon.-Fri. 7 a.m.-3 p.m. Leave a voicemail if needed. Pre-Surgery Instructions: Medication Instructions blood sugar diagnostic (glucose blood) strip Stop taking 0 days prior to procedure blood-glucose meter kit Stop taking 0 days prior to procedure dulaglutide (TRULICITY) 3 mg/0.5 mL pen injector Stop taking 1 week prior to procedure lancets (accu-chek soft touch) misc Take morning of procedure lidocaine (LIDODERM) 5 % Stop taking 0 days prior to procedure metFORMIN (GLUCOPHAGE) 500 mg tablet Stop taking 0 days prior to procedure omeprazole (PriLOSEC) 40 mg capsule Stop taking 0 days prior to procedure documented in this encounter [facility] 02-25-2024 History of Presen t illness Narrative Images from the original note were not included. Chief Complaint: Barretts esophagus History of Present Illness Emilee Hood is a 33 y.o. female who presents to the office for Barretts esophagus. She states she was diagnosed in [place] in 2016. She has not had an EGD since then. She reports heartburn despite taking omeprazole 40 mg daily. Sometimes she will vomit. She also feels as if food gets stuck/lodged in her throat. She drinks occasional tea, other than that no caffeine. She vapes daily. She does not take frequent NSAIDs. She eats late at night sometimes due to her work schedule. Review of Systems Constitutional: Negative for fever and unexpected weight change. HENT: Positive for trouble swallowing. Respiratory: Negative for shortness of breath. Cardiovascular: Negative for chest pain. Gastrointestinal: Positive for vomiting. Negative for diarrhea, constipation and blood in stool. GERD Genitourinary: Negative for dysuria and difficulty urinating. Musculoskeletal: Negative for gait problem. Skin: Negative for rash and wound. Neurological: Negative for dizziness, weakness and light-headedness. Hematological: Does not bruise/bleed easily. Psychiatric/Behavioral: Negative for confusion. Past Medical History: Diagnosis Date ADD (attention deficit disorder) Bipolar 1 disorder ([facility]) Depression History of Vazquez's esophagus Personality disorder ([facility]) PTSD (post-traumatic stress disorder) Schizo-affective schizophrenia ([facility]) Past Surgical History: Procedure Laterality Date ADENOIDECTOMY APPENDECTOMY CHOLECYSTECTOMY ESOPHAGOGASTRODUODENOSCOPY OOPHORECTOMY Right cyst TONSILLECTOMY WRIST SURGERY fractured as a child Allergies Allergen Reactions Augmentin [Amoxicillin-Pot Clavulanate] Rash Current Outpatient Medications: blood sugar diagnostic (glucose blood) strip, Test once daily and as needed., Disp: 100 strip, Rfl: 5 blood-glucose meter kit, Use as instructed, Disp: 1 each, Rfl: 0 dulaglutide (TRULICITY) 3 mg/0.5 mL pen injector, Inject 3 mg under the skin every 7 days., Disp: 2 mL, Rfl: 2 lancets (accu-chek soft touch) misc, Test once daily and as needed, Disp: 100 each, Rfl: 5 lidocaine (LIDODERM) 5 %, Place 1 patch on the skin daily., Disp: , Rfl: metFORMIN (GLUCOPHAGE) 500 mg tablet, Take 1 tablet (500 mg total) by mouth in the morning and 1 tablet (500 mg total) in the evening. Take with meals., Disp: 60 tablet, Rfl: 3 omeprazole (PriLOSEC) 40 mg capsule, Take 1 capsule (40 mg total) by mouth in the morning., Disp: 30 capsule, Rfl: 2 Social History Socioeconomic History Marital status: Spouse name: Not on file Number of children: Not on file Years of education: Not on file Highest education level: Not on file Occupational History Not on file Tobacco Use Smoking status: Former Average packs/day: 1 pack/day for 18.0 years (18.0 ttl pk-yrs) Types: Cigarettes Start date: 2004 Smokeless tobacco: Never Vaping Use Vaping status: Every Day Substances: Nicotine Devices: Disposable Substance and Sexual Activity Alcohol use: Not Currently Comment: rare Drug use: Not Currently Types: Marijuana Comment: Occasionally Sexual activity: Not Currently Partners: Male Comment: 2 months Other Topics Concern Not on file Social History Narrative Not on file Social Determinants of Health Financial Resource Strain: Not on file Food Insecurity: No Food Insecurity (02/25/2024) Hunger Screening Food Insecurity - Worry: Never True Food Insecurity - Inability: Never True Transportation Needs: Not on file Physical Activity: Not on file Stress: Not on file Social Connections: Not on file Interpersonal Safety: Not on file Housing Instability: Not on file Family History Problem Relation Age of Onset Thyroid cancer Mother Cirrhosis Mother stage 4 Diabetes Father Hypertension Father Bipolar disorder Father Cervical cancer Maternal Grandmother unsure Objective Physical Exam Constitutional: General: She is not in acute distress. Appearance: Normal appearance. She is obese. She is not ill-appearing. HENT: Head: Normocephalic and atraumatic. Mouth/Throat: Mouth: Mucous membranes are moist. Eyes: Pupils: Pupils are equal, round, and reactive to light. Cardiovascular: Rate and Rhythm: Normal rate and regular rhythm. Pulmonary: Effort: Pulmonary effort is normal. No respiratory distress. Abdominal: General: Bowel sounds are normal. There is no distension. Palpations: Abdomen is soft. Tenderness: There is no abdominal tenderness. Musculoskeletal: General: Normal range of motion. Skin: General: Skin is warm and dry. Neurological: Mental Status: She is alert and oriented to person, place, and time. Mental status is at baseline. Vital Signs: Blood pressure 142/77, pulse 91, height 170.2 cm (5' 7 ), weight (!) 147.5 kg (325 lb 3.2 oz), last menstrual period 01/24/2024. Respiratory Source: No data recorded Admission Weight: Weight: (!) 147.5 kg (325 lb 3.2 oz) Labs Lab Results Component Value Date WBC 10.5 11/06/2023 HGB 13.2 11/06/2023 HCT 38.1 11/06/2023 MCV 88 11/06/2023 PLT 338 11/06/2023 Lab Results Component Value Date GLU 97 11/06/2023 CALCIUM 9.3 11/06/2023 K 4.4 11/06/2023 CO2 27 11/06/2023 CL 102 11/06/2023 BUN 16 11/06/2023 CREATININE 0.65 11/06/2023 No results found for: AMYLASE No results found for: LIPASE Lab Results Component Value Date ALT 30 11/06/2023 AST 19 11/06/2023 ALKPHOS 67 11/06/2023 No results found for: INR , PROTIME Assessment Barretts esophagus GERD symptoms despite PPI therapy BMI 50.93 Plan EGD with possible biopsy. Risks, benefits, and alternatives discussed with patient. Patient verbalizes understanding and wishes to proceed. Eat smaller meals, do not eat prior to bed, limit caffeine, vaping cessation, weight loss, increase omeprazole to 40 mg twice daily. Evaluation included: Preparing to see the patient (e.g., review of tests) Obtaining and/or reviewing separately obtained history Performing a medically appropriate examination and/or evaluation Counseling and educating the patient/family/caregiver Referring and communicating with other health critical care specialist History of Vazquez's esophagus [Z87.19] MILDRED FELIZ [facility] General Surgery [place] This note was created with the assistance of a speech recognition program. While intending to generate a timely document that accurately reflects the content of the visit, no guarantee can be provided that every grammatical or spelling mistake has been or will be identified or corrected. Thank you for your understanding. MILDRED Feliz 02/25/24 1313 documented in this encounter [facility] 02-09-2024 History of Presen t illness Narrative Subjective Patient ID: Emilee Hood is a 33 y.o. female. TORI Hebert presents to the office for DM follow up. HgbA1c was 6.9% on 11/06/2023. Has not been checking blood sugars. She was having trouble getting the trulicity as the pharmacies are out of stock, but when she was taking it, she was tolerating it well. She has been taking the metformin. Emilee continues to work on diet and exercise for DM and for weight. However, she is also working more, this makes it difficult to exercise a little more. She repots she has been having back spasms as she is caring for her grandma. But it is not intolerable. Emilee reports that her Mom has stage 4 cirrhosis of the liver and she would like to know what her blood type is and see if she would be a candidate for her mom. The following portions of the patient's history were reviewed and updated as appropriate: allergies, current medications, past family history, past medical history, past social history, past surgical history, problem list, and medication reconciliation was completed including current medication and post discharge medication. Review of Systems Constitutional: Negative for chills, diaphoresis, fatigue, fever and unexpected weight change. HENT: Negative. Eyes: Negative. Respiratory: Negative for cough, chest tightness, shortness of breath and wheezing. Cardiovascular: Negative for chest pain, palpitations and leg swelling. Gastrointestinal: Negative for abdominal pain, diarrhea, nausea and vomiting. Endocrine: Negative for polydipsia, polyphagia and polyuria. Genitourinary: Negative for difficulty urinating, frequency, hematuria and urgency. Musculoskeletal: Negative for arthralgias, gait problem, joint swelling and neck pain. Skin: Negative. Neurological: Negative for dizziness, syncope, weakness, light-headedness, numbness and headaches. Psychiatric/Behavioral: Negative for self-injury and suicidal ideas. Objective Physical Exam Vitals and nursing note reviewed. Constitutional: General: She is not in acute distress. Appearance: Normal appearance. She is not ill-appearing. HENT: Head: Normocephalic and atraumatic. Eyes: Extraocular Movements: Extraocular movements intact. Pupils: Pupils are equal, round, and reactive to light. Cardiovascular: Rate and Rhythm: Normal rate and regular rhythm. Pulses: Normal pulses. Heart sounds: Normal heart sounds. Pulmonary: Effort: Pulmonary effort is normal. Breath sounds: Normal breath sounds. Abdominal: General: Bowel sounds are normal. Palpations: Abdomen is soft. Musculoskeletal: Cervical back: Normal range of motion and neck supple. Right lower leg: No edema. Left lower leg: No edema. Skin: Capillary Refill: Capillary refill takes less than 2 seconds. Findings: No erythema or rash. Neurological: General: No focal deficit present. Mental Status: She is alert and oriented to person, place, and time. Psychiatric: Mood and Affect: Mood normal. Behavior: Behavior normal. Assessment/Plan Labs ordered to check blood type and hgbA1c. Glucometer ordered so she can monitor her BS. I will send in ozempic since she is hvingv trouble getting trulicty. However, also encouraged patient to call local pharmacies to see if others have trulicity in stock if insurance will not cover ozempic. Continue with metformin. Continue to work on diet and exercise. She will get eye exam scheduled. FU 6 months DM. Emilee was seen today for diabetes. Diagnoses and all orders for this visit: Controlled type 2 diabetes mellitus without complication, without long-term current use of insulin ([facility]) - blood sugar diagnostic (glucose blood) strip; Test once daily and as needed. - blood-glucose meter kit; Use as instructed - lancets (accu-chek soft touch) misc; Test once daily and as needed - semaglutide (OZEMPIC) 0.25 mg or 0.5 mg (2 mg/3 mL) pen injector; Inject 0.25 mg under the skin every 7 days. - Hemoglobin A1c; Future Family history of cirrhosis of liver - Hepatitis panel, acute; Future - ABO/Rh; Future MILDRED Keith 02/15/24 0656 [facility] instructions Additional Instructions Take the prednisone once a day starting tomorrow for 4 more days Take the muscle relaxer cyclobenzaprine up to 3 times a day for pain it may make you drowsy Take the ketorolac every 6 hours for pain take with food May apply 1-2 lidocaine patches over sorest areas daily May use ice or warm moist heat whichever helps the best Gentle stretching Follow-up with family doctor Return to the ER for worsening pain chest pain shortness of breath fever or any other concerns [facility] Work Phone: 11-06-2023 History of Presen t illness Narrative Subjective Patient ID: Emilee Hood is a 32 y.o. female. TORI Hebert presents to the office for wellness. [facility] and had IUD removed 07/31/2023. She has urinary incontinence and referral was placed to Pelvic floor therapy by [facility]. She completed and this was helpful.She will complete PAP with [facility]. Otherwise she is doing well. She admits she has occasional shortness of breath, but feels that it is related to her vaping. She has been working on diet and exercise for weight management. The following portions of the patient's history were reviewed and updated as appropriate: allergies, current medications, past family history, past medical history, past social history, past surgical history, problem list, and medication reconciliation was completed including current medication and post discharge medication. Review of Systems Constitutional: Negative for chills, diaphoresis, fatigue, fever and unexpected weight change. HENT: Negative. Eyes: Negative. Respiratory: Negative for cough, chest tightness, shortness of breath and wheezing. Cardiovascular: Negative for chest pain, palpitations and leg swelling. Gastrointestinal: Negative for abdominal pain, diarrhea, nausea and vomiting. Endocrine: Negative for polydipsia, polyphagia and polyuria. Genitourinary: Negative for difficulty urinating, frequency, hematuria and urgency. Musculoskeletal: Negative for arthralgias, gait problem, joint swelling and neck pain. Skin: Negative. Neurological: Negative for dizziness, syncope, weakness, light-headedness, numbness and headaches. Psychiatric/Behavioral: Negative for self-injury and suicidal ideas. Objective Physical Exam Vitals and nursing note reviewed. Exam conducted with a cage unloader present (Tete BLACKWOOD). Constitutional: General: She is not in acute distress. Appearance: Normal appearance. She is well-developed. She is not ill-appearing. HENT: Head: Normocephalic and atraumatic. Nose: Nose normal. Mouth/Throat: Mouth: Mucous membranes are moist. Pharynx: Oropharynx is clear. Eyes: Extraocular Movements: Extraocular movements intact. Pupils: Pupils are equal, round, and reactive to light. Cardiovascular: Rate and Rhythm: Normal rate and regular rhythm. Heart sounds: Normal heart sounds. No murmur heard. Pulmonary: Effort: Pulmonary effort is normal. No respiratory distress. Breath sounds: Normal breath sounds. No wheezing. Chest: Chest wall: No mass, lacerations, deformity, swelling, tenderness, crepitus or edema. There is no dullness to percussion. Breasts: Right: Normal. Left: Normal. Abdominal: General: Bowel sounds are normal. Palpations: Abdomen is soft. Musculoskeletal: General: Normal range of motion. Cervical back: Neck supple. Lymphadenopathy: Cervical: No cervical adenopathy. Upper Body: Right upper body: No supraclavicular, axillary or pectoral adenopathy. Left upper body: No supraclavicular, axillary or pectoral adenopathy. Skin: General: Skin is warm and dry. Capillary Refill: Capillary refill takes less than 2 seconds. Findings: No rash. Neurological: Mental Status: She is alert and oriented to person, place, and time. Cranial Nerves: No cranial nerve deficit. Psychiatric: Mood and Affect: Mood normal. Behavior: Behavior normal. Assessment/Plan Health maintenance reviewed. Manual breast exam completed today, negative. Wellness labs ordered. We will call with results. PAP to be scheduled with [facility]. We will start [facility] for weight management and for prediabetes. She denies personal or family history of medullary thyroid cancer. She has never had pancreatitis. FU 3 months for prediabetes check. Emilee was seen today for wellness. Diagnoses and all orders for this visit: Wellness examination - Cancel: Comprehensive metabolic panel; Future - Cancel: Hemoglobin A1c; Future - Cancel: Lipid profile; Future - Cancel: CBC auto differential; Future - Cancel: Vitamin D 25 hydroxy; Future - Cancel: Vitamin B12; Future - metFORMIN (GLUCOPHAGE) 500 mg tablet; Take 1 tablet (500 mg total) by mouth in the morning and 1 tablet (500 mg total) in the evening. Take with meals. - omeprazole (PriLOSEC) 40 mg capsule; Take 1 capsule (40 mg total) by mouth in the morning. - Cancel: TSH with Reflex; Future - CBC auto differential; Future - Comprehensive metabolic panel; Future - Hemoglobin A1c; Future - Lipid profile; Future - TSH with Reflex; Future - Vitamin B12; Future - Vitamin D 25 hydroxy; Future Prediabetes - Cancel: Hemoglobin A1c; Future - Cancel: TSH with Reflex; Future - Hemoglobin A1c; Future - TSH with Reflex; Future - dulaglutide (TRULICITY) 0.75 mg/0.5 mL pen injector; Inject 0.5 mL (0.75 mg total) under the skin every 7 days. Migraine without aura and with status migrainosus, not intractable - Cancel: Vitamin D 25 hydroxy; Future - Cancel: Vitamin B12; Future - Vitamin B12; Future - Vitamin D 25 hydroxy; Future MILDRED Keith 11/06/232108 documented in this encounter [facility] 07-31-2023 History of Presen t illness Narrative IUD Removal Procedure Note Type of IUD: Mirena Date of insertion: 8 years ago Reason for removal: Device expiration and desires Other relevant history/information: last pap was 8 years [id number] aware she needs annual scheduled. Procedure Time Out Documentation Procedure Details IUD strings visible: yes Removal: IUD strings grasped and IUD removed intact with gentle traction. The patient tolerated the procedure well. All appropriate instructions regarding removal were reviewed. Plans for contraception: no method Other follow-up needed: appt scheduled next week for annual / pap The patient was advised to call for any fever or for prolonged or severe pain or bleeding. She was advised to use OTC ibuprofen as needed for mild to moderate pain. MILDRED Bernard APRN-CNP 07/31/23 1436 Emilee Hood is a 32 y.o.female new patient. Patient's last menstrual period was 07/17/2023 (exact date).. She presents with c/o stress incontinence and to have her IUD removed. Patient was seen by PCP last week and was instructed to begin kegel exercises. Patient state she has started to do this, but would like to know what the next step would be. Current contraception: IUD and abstinence. OB History 2 Para 2 Term 2 AB Living 1 SAB IAB Ectopic Multiple Live Births 1 MEDICAL HX Past Medical History: Diagnosis Date ADD (attention deficit disorder) Bipolar 1 disorder ([facility] [place]) Depression Personality disorder ([facility] [place] PTSD (post-traumatic stress disorder) Schizo-affective schizophrenia ([facility] [place]) SURGICAL HX Past Surgical History: Procedure Laterality Date ADENOIDECTOMY APPENDECTOMY CHOLECYSTECTOMY OOPHORECTOMY Right cyst TONSILLECTOMY WRIST SURGERY fractured as a child FAMILY HX Family History Problem Relation Age of Onset Cervical cancer Maternal Grandmother unsure Hypertension Father Bipolar disorder Father MEDS Current Outpatient Medications Medication Sig Dispense Refill ibuprofen (MOTRIN) 800 mg tablet Take 1 tablet (800 mg total) by mouth every 8 (eight) hours as needed for pain or headaches for up to 90 days. 30 tablet 3 metFORMIN (GLUCOPHAGE) 500 mg tablet Take 1 tablet (500 mg total) by mouth in the morning and 1 tablet (500 mg total) in the evening. Take with meals. (Patient not taking: Reported on 07/31/2023) 60 tablet 3 omeprazole (PriLOSEC) 40 mg capsule Take 1 capsule (40 mg total) by mouth in the morning. (Patient not taking: Reported on 07/31/2023) 30 capsule 2 No current facility-administered medications for this visit. ALLERGIES Allergies Allergen Reactions Augmentin [Amoxicillin-Pot Clavulanate] Rash Review of Systems Constitutional: Negative. Genitourinary: Negative for menstrual problem and pelvic pain. Neurological: Negative. Psychiatric/Behavioral: Negative. Objective BP 120/80 Ht 167.6 cm (5' 6 ) Wt (!) 137 kg (302 lb) LMP 07/17/2023 (Exact Date) BMI 48.74 kg/m Physical Exam Vitals and nursing note reviewed. Constitutional: Appearance: Normal appearance. Pulmonary: Effort: Pulmonary effort is normal. Genitourinary: General: Normal vulva. Labia: Right: No rash or lesion. Left: No rash or lesion. Vagina: Normal. Cervix: Normal. Comments: IUD strings noted at cervical os. Please see IUD removal note. Musculoskeletal: General: Normal range of motion. Skin: General: Skin is warm and dry. Neurological: Mental Status: She is alert and oriented to person, place, and time. Psychiatric: Mood and Affect: Mood normal. Speech: Speech normal. Behavior: Behavior normal. Thought Content: Thought content normal. Judgment: Judgment normal. Assessment/Plan: Emilee was seen today for contraception. Diagnoses and all orders for this visit: Encounter for IUD removal - [facility] - [facility] - [place], [place] - Consult Stress incontinence of urine - [facility] - [facility] - [place], [place] - Consult - [facility] [place]; Future - [facility] - [place], [place]; Future Discussed kegel exercises and pelvic floor therapy. Patient desires therapy, referral placed. All questions answered. Educational material provided. Encouraged vitamin if planning a . RTO for annual (due now) or sooner as needed. MILDRED Bernard APRN-CNP 07/31/23 1436 documented in this encounter [facility] 07-24-2023 History of Presen t illness Narrative Subjective Patient ID: Emilee Hood is a 32 y.o. female. TORI Hebert presents to the office to establish care. She recently moved to the area from [place] a few months ago. She admits she has not had a PCP in about 7 years as she was abusing methamphetamines. However, she has been sober for about a year and would really like to put her health first. She has a couple of concerns today. She is concerned about her diabetes, she used to be on metformin, but has not been on medication in a long time. She also reports that she has bladder issues. She reports she gets incontinence with any pressure to her bladder, lifting, or really any exertion causes leakage. She states she has an IUD in place, and she would like it removed. She reports she does not want to be on another form of control. She also reports that she has noticed a lump to head right side of her head for the past 2 years. She reports she does not know for sure how long the lump has been there, but she has noticed it for the last 2 years. She also reports that she has been having headaches. They do not occur very often anymore, but they would get so severe that she would have to go lay in complete darkness and silence. And it would affect bilateral temples. They would not occur often, just once every few months. Ibuprofen seemed to be effective in the past to help with headaches. Also, she has been coughing more often, but she does vape now. Her cough is mostly dry, but she occasionally produces phlegm. She reports she had a hx of childhood asthma. But does not feel that she has a lot of flare ups or feels like she needs an inhaler. She also reports she has excessive fatigue, despite sleeping at night. And she says her says she makes a weird sound when she is sleeping. So he is concerned that she could have sleep apnea. She also reports that she snores daily, and has periods of apnea. However, her is currently in long term and will be there for a few months. Also reports she has daily heartburn/indigestion- had testing done about 10 years ago. Also reports she has a history of Bipolar/schizophrenic/PTSD- fluoxetine in the past. Depression score is 11 today. She denies SI or self harm or harm to others. ADD- 10 years ago was on adderall. Hx of drug abuse has been clean. The following portions of the patient's history were reviewed and updated as appropriate: allergies, current medications, past family history, past medical history, past social history, past surgical history, problem list, and medication reconciliation was completed including current medication and post discharge medication. Review of Systems Constitutional: Negative for chills, diaphoresis, fatigue, fever and unexpected weight change. HENT: Positive for postnasal drip. Respiratory: Positive for cough. Negative for chest tightness, shortness of breath and wheezing. Cardiovascular: Negative for chest pain, palpitations and leg swelling. Gastrointestinal: Negative for abdominal pain, blood in stool, constipation, diarrhea and nausea. Genitourinary: Negative for dysuria. Incontinence Musculoskeletal: Negative. Skin: Negative. Neurological: Positive for headaches. Psychiatric/Behavioral: Negative for self-injury and suicidal ideas. Objective Physical Exam Vitals and nursing note reviewed. Constitutional: General: She is not in acute distress. Appearance: Normal appearance. She is well-developed. She is not ill-appearing. HENT: Head: Normocephalic and atraumatic. Right Ear: Tympanic membrane, ear canal and external ear normal. Left Ear: Tympanic membrane, ear canal and external ear normal. Nose: Nose normal. Mouth/Throat: Mouth: Mucous membranes are moist. Pharynx: Oropharynx is clear. Eyes: Extraocular Movements: Extraocular movements intact. Conjunctiva/sclera: Conjunctivae normal. Pupils: Pupils are equal, round, and reactive to light. Neck: Vascular: No carotid bruit. Cardiovascular: Rate and Rhythm: Normal rate and regular rhythm. Pulses: Normal pulses. Heart sounds: Normal heart sounds. No murmur heard. Pulmonary: Effort: Pulmonary effort is normal. Breath sounds: Normal breath sounds. Abdominal: General: Bowel sounds are normal. There is no distension. Palpations: Abdomen is soft. There is no mass. Tenderness: There is no abdominal tenderness. There is no guarding or rebound. Hernia: No hernia is present. Musculoskeletal: General: Normal range of motion. Cervical back: Normal range of motion and neck supple. No rigidity or tenderness. Right lower leg: No edema. Left lower leg: No edema. Lymphadenopathy: Cervical: No cervical adenopathy. Skin: General: Skin is warm and dry. Capillary Refill: Capillary refill takes less than 2 seconds. Findings: No erythema or rash. Neurological: General: No focal deficit present. Mental Status: She is alert and oriented to person, place, and time. Psychiatric: Mood and Affect: Mood normal. Behavior: Behavior normal. Assessment/Plan Sign release of records. POCT HgbA1c- 6.2 today- prediabetes, we should restart metformin. We will initiate omeprazole for 8 weeks, and then we can switch to pepcid if continued therapy needed. We should discus restarted mental health medication or referral to psych. I do not recommend treatment for ADHD treatment at this time. Referral to Women's health for IUD removal and family planning. She will discuss urinary incontinence with women's health. Migdaliae will perform keegle exercises in the meantime. Discussed possible sleep study in the future. Ibuprofen PRN headaches. FU 8 weeks. Emilee was seen today for establish care. Diagnoses and all orders for this visit: Stress incontinence of urine - [facility] - [facility] - [place], [place] - Consult; Future Family planning, IUD (intrauterine device) check[facility]reinsertion[facility] - [place], [place] - Consult; Future Prediabetes Migraine without aura and with status migrainosus, not intractable Other orders - omeprazole (PriLOSEC) 40 mg capsule; Take 1 capsule (40 mg total) by mouth in the morning. - metFORMIN (GLUCOPHAGE) 500 mg tablet; Take 1 tablet (500 mg total) by mouth in the morning and 1 tablet (500 mg total) in the evening. Take with meals. - ibuprofen (MOTRIN) 800 mg tablet; Take 1 tablet (800 mg total) by mouth every 8 (eight) hours as needed for pain or headaches for up to 90 days. MILDRED Keith 07/28/231803 documented in this encounter [facility] Evaluation note No assessment inform ation available [facility] Work Phone: Evaluation note Diagnosis Controlled type 2 diabetes mellitus without complication, without long-term current use of insulin ([facility] [place] Primary Vazquez's esophagus without dysplasia [facility] Diagnosis Stress incontinence of urine- Primary Family planning, IUD (intrauterine device) check/reinsertion/removal Surveillance of previously prescribed intrauterine contraceptive device Prediabetes Other abnormal glucose Migraine without aura and with status migrainosus, not intractable [facility] Diagnosis Encounter for IUD removal- Primary Stress incontinence of urine [facility] Diagnosis Prediabetes- Primary Other abnormal glucose [facility] Diagnosis Prediabetes Other abnormal glucose [facility] Diagnosis Controlled type 2 diabetes mellitus without complication, without long-term current use of insulin ([facility] Primary Family history of cirrhosis of liver [facility] Diagnosis History of Vazquez's esophagus- Primary [facility] Diagnosis History of Vazquez's esophagus- Primary Body mass index (BMI) of 50-59.9 in adult ([facility]) Current every day vaping Preop examination- Primary Unspecified pre-operative examination Morbid obesity with BMI of 50.0-59.9, adult ([facility]) Type 2 diabetes mellitus without complication, unspecified whether alf insulin use ([facility]) documented in this encounter [facility]* Diagnosis Preop examination- Primary Unspecified pre-operative examination Morbid obesity with BMI of 50.0-59.9, adult ([facility]) Type 2 diabetes mellitus without complication, unspecified whether alf insulin use ([facility]) Preop examination Unspecified pre-operative examination Morbid obesity with BMI of 50.0-59.9, adult ([facility]) Type 2 diabetes mellitus without complication, unspecified whether salvage determiner insulin use ([facility]) documented in this encounter [facility]* Diagnosis Wellness examination- Primary Prediabetes Other abnormal glucose Migraine without aura and with status migrainosus, not intractable documented in this encounter [facility]* Diagnosis Wellness examination documented in this encounter [facility]Inst[facility]* Attachments The following attachments cannot be sent through Care Everywhere. * Low Cholesterol, Saturated Fat, and Trans Fat Diet (Japanese) [facility] SystemInstructionsNot on file documented [facility]* Attachments The following attachments cannot be sent through Care Everywhere. * How to plan and prepare for a healthy (Japanese) * Urinary incontinence in females (Japanese) [facility] SystemInstructionsNot on file [facility] SystemInstructionsNot on file documented in this [facility] SystemInstructionsNot on file documented in this encounterPro[facility] SystemInstructionsNot on file documented in this encounterProWood[facility] SystemInstructionsNot on file documented in this encounterProWood[facility] SystemInstructionsNot on file documented in [facility] SystemInstructionsNot on file documented in this encounter[facility]* Attachments The following attachments cannot be sent through Care Everywhere. * Weight Loss Tips (Japanese) documented in this encounterProMadison HealthInstructionsNot on file documented in this encounterProMadison HealthInstructionsNot on file documented in this encounterProMadison HealthReason for referral (narrative)* Consultation (Routine) - Authorized Specialty Diagnoses / Procedures Referred By Contjackson t Referred To Contact Obstetrics and Gynecology Diagnoses Stress incontinence of urine Family planning, IUD (intrauterine device) check/reinsertion/remova l Raheem Youssef APRN-CNP [address] [address] [facility] [address] [facility] [place] [address] Referral ID Status Reason Start Date Expiration Date Visits Requested Visits Authorized [id number] Authorized Specialty Services Required 07/23/2024 1 1 [facility] Consultation (Routine) - Pending Review Specialty Diagnoses / Procedures Referred By Heriberto mccormick Referred To Contact General Surgery Diagnoses History of Vazquez's esophagus Raheem Youssef APRN-CNP [address] [place] [phone] [facility] Grillis Elliott [address] [place] [address] Referral ID Status Reason Start Date Expiration Date Visits Requested Visits Authorized [id number] Pending Review Specialty Services Required 02/23/2024 02/22/2025 1 1 [facility] Chief Complaint and Reason for Visit Chief Complaint back pain Chief Complaint Admit Date Unknown August 10, 2024 12 :25am Advance Directives Advance Directive Response Recorded Date/ Time Advance Directives No January 19 9:21am Advance Directive Response Recorded Date/ Time Advance Directives No Kiki 18th, 20 18 8:21am Summary Purpose Family History No Family History Records FoundNo Family History Records FoundNo Family History Records Found Reason for Referral Specialty Diagnoses / Procedures Referred By Contact Referred To Contact Occupational Therapy / Rehabilitation Diagnoses Stress incontinence of urine Ainsley Johnson, CLAIMS [facility]ORCOLL[facility] [address] [place] [address] [facility] [address] [place] [address] Referral ID Status Reason Start Date Expiration Date Visits Requested Visits Authorized [id number] Authorized Specialty Services Required 3 07/30/2024 1 1 Scheduling Instructions Pelvic floor therapy for stress incontinence Specialty Diagnoses / Procedures Referred By Contac t Referred To Contact Rehabilitation Diagnoses Stress incontinence of urine Ainsley Johnson, CLAIMS [facility] [address] [place] [address] [facility] [address] [place] [address] Referral ID Status Reason Start Date Expiration Date Visits Requested Visits Authorized [id number] Authorized Specialty Services Required 3 07/30/2024 1 1 Specialty Diagnoses / Procedures Referred By Contac t Referred To Contact Diagnoses Controlled type 2 diabetes mellitus without complication, without long-term current use of insulin ([facility]) Raheem Youssef, CLAIMS DIRECT[facility]CO[facility] [address] [place] [phone] Referral ID Status Reason Start Date Expiration Date V isits Requested Visits Authorized [id number] Pending Review 02/09/2024 02/08/2025 1 1 Specialty Diagnoses / Procedures Referred By Contac t Referred To Contact Diagnoses Preop examination Morbid obesity with BMI of 50.0-59.9, adult ([facility]) Type 2 diabetes mellitus without complication, unspecified whether alf insulin use ([facility]) Procedures ECG 12 lead Theresa Mayers MD [address] [place] [address] Referral ID Status Reason Start Date Expiration Date V isits Requested Visits Authorized [id number] Pending Review 02/25/2024 02/24/2025 1 1 Additional Source Comments Care Teams (unrecognized sec tion and content) Team Status: Active Member Role Status Dates NON STAFF Primary Care Provider Active Team Status: Inactive Member Role Status Dates NON STAFF Primary Care Provider Active Start: January 26, 2024 End: January 26, 2024 Cynthia White , SHIP'S OFFICER- Emergency Provider Active Start: January 26, 2024 End: January 26, 2024 Team Status: Inactive Member Role Status Dates Paddy Lee DO Attending Provider Active S tart: August 10, 2024 End: August 10, 2024 People Greeter Relationship Specialty Start Date End Date Raheem Youssef APRN-CORPORATE DIRECTOR TALENT ASSESSMENT PCP - General Nurse Practitioner 07/24/23 People Greeter Relationship Specialty Start Date End Date Raheem Youssef APRN-CORPORATE DIRECTOR TALENT ASSESSMENT [address] [place] [address] PCP - General Nurse Practitioner 07/24/23 People Greeter Relationship Specialty Start Date End Date Raheem Youssef APRN-CORPORATE DIRECTOR TALENT ASSESSMENT [address] [place] [address] PCP - General Nurse Practitioner 07/24/23 People Greeter Relationship Specialty Start Date End Date Raheem Youssef APRN-CORPORATE DIRECTOR TALENT ASSESSMENT PCP - General Nurse Practitioner 07/24/23 People Greeter Relationship Specialty Start Date End Date Raheem Youssef APRN-CORPORATE DIRECTOR TALENT ASSESSMENT PCP - General Nurse Practitioner 07/24/23 People Greeter Relationship Specialty Start Date End Date Raheem Youssef APRN-CORPORATE DIRECTOR TALENT ASSESSMENT PCP - General Nurse Practitioner 07/24/23 People Greeter Relationship Specialty Start Date End Date Raheem Youssef APRNJonnyCORPORATE DIRECTOR TALENT ASSESSMENT PCP - General Nurse Practitioner 07/24/23 People Greeter Relationship Specialty Start Date End Date YoussefGenara CLAIMS DIRECTORJonnyCORPORATE DIRECTOR TALENT ASSESSMENT PCP - General Nurse Practitioner 07/24/23 People Greeter Relationship Specialty Start Date End Date YoussefRaheem lazaro CLAIMS DIRECTORJonnyCORPORATE DIRECTOR TALENT ASSESSMENT PCP - General Nurse Practitioner 07/24/23 People Greeter Relationship Specialty Start Date End Date YoussefRaheem lazaro CLAIMS DIRECTORJonnyCORPORATE DIRECTOR TALENT ASSESSMENT PCP - General Nurse Practitioner 07/24/23 People Greeter Relationship Specialty Start Date End Date YoussefRaheem CLAIMS DIRECTORJonnyCORPORATE DIRECTOR TALENT ASSESSMENT PCP - General Nurse Practitioner 07/24/23 People Greeter Relationship Specialty Start Date End Date YoussefRaheem lazaro APRN-CNP PCP - General Nurse Practitioner 07/24/23 People Greeter Relationship Specialty Start Date End Date YoussefRaheem lazaro APRN-CORPORATE DIRECTOR TALENT ASSESSMENT PCP - General Nurse Practitioner 07/24/23 Goals (unrecognized section and content) Goals may be documented in a n alternate sectionGoals may be documented in an alternate sectionNot on filedocumented as of this encounterNot on filedocumented as of this encounterNot on filedocumented as of this encounterNot on filedocumented as of this encounterNot on filedocumented as of this encounterNot on filedocumented as of this encounterNot on filedocumented as of this encounterNot on filedocumented as of this encounterNot on filedocumented as of this encounterNot on filedocumented as of this encounterNot on filedocumented as of this encounterNot on filedocumented as of this encounterNot on filedocumented as of this encounterNot on filedocumented as of this encounter INFORMATION SOURCE (unrecogn ized section and content) DATE CREATED AUTHOR 03/09/[address] [facility] DATE CREATED AUTHOR AUTHOR'S ORGANIZ ATION 08/17/2024 [facility] DATE CREATED AUTHOR AUTHOR'S ORGANIZ ATION 08/17/2024 [facility] Reason for Visit (unrecogniz ed section and content) Reason Comments Follow-up DM Reason Comments Establish Care Reason Comments Contraception MIRENA removal Specialty Diagnoses / Procedures Referred By Heriberto mccormick Referred To Contact Obstetrics and Gynecology Diagnoses Stress incontinence of urine Family planning, IUD (intrauterine device) check/reinsertion/remova l Raheem Youssef APRN-CORPORATE DIRECTOR TALENT ASSESSMENT [address] [address] [facility] [address] [place] [address] Referral ID Status Reason Start Date Expiration Date Visits Requested Visits Authorized [id number] Pending Review Specialty Services Required 3 07/23/2024 1 1 Reason Comments Med Refill Reason Comments Diabetes Reason Comments Barretts Esophagus History of Vazquez's Esophagus, referred by Raheem Youssef CNP Specialty Diagnoses / Procedures Referred By Heriberto mccormick Referred To Contact General Surgery Diagnoses History of Vazquez's esophagus Raheem Youssef APRN-CNP [address] [place] [address], [place] [address] [facility] Grillis Elliott [address] [place] [address] Referral ID Status Reason Start Date Expiration Date V isits Requested Visits Authorized [id number] Closed Specialty Services Required 02/23/2024 02/22/2025 1 1 Reason Comments wellness Reason Onset Date Comments Med Refill 04/18/2024 FOR RECORDS PERTAINING TO PATIENTS WHO ARE OR HAVE BEEN ENROLLED IN A CHEMICAL DEPENDENCY/SUBSTANCEABUSE PROGRAM, SOME INFORMATION MAY BE OMITTED. This clinical summary was aggregated from multiple sources. Caution should be exercised in using it in the provision of clinical care. This summary normalizes information from multiple sources, and as a consequence, information in this document may materially change the coding, format and clinical context of patient data. In addition, data may be omitted in some cases. CLINICAL DECISIONS SHOULD BE BASED ON THE PRIMARY CLINICAL RECORDS. [facility]. provides no warranty or guarantee of the accuracy or completeness of information in this document.
--- NOTE | 2025-01-07 04:29 | ED.LOWEXI1 ---
HPI HPI - Extremity Injury (Lower) General Chief Complaint: Extremity Injury, Lower Stated Complaint: ROLLED LEFT ANKLE AT WORK Time Seen by Provider: 01/07/25 04:20 Source: patient Mode of arrival: walk-in Limitations: no limitations History of Present Illness HPI Narrative: rolled left ankle at work. Describes stepping of object(gear) on the floor. Denies any other injury. No lower ext. numbness or weakness Related Data Home Medications ?Medication ?Instructions ?Recorded ?Confirmed metformin 500 mg tablet,extended 1,000 mg PO BID 08/11/24 01/07/25 release 24 hr omeprazole 40 mg capsule,delayed 40 mg PO DAILY 08/11/24 01/07/25 release Allergies Allergy/AdvReac Type Severity Reaction Status Date / Time amoxicillin (From Augmentin) Allergy Severe Rash Verified 01/07/25 04:00 clavulanic acid (From Allergy Severe Rash Verified 01/07/25 04:00 Augmentin) Opioid HPI Opioid Management Most Recent Pain and Opioid Data: Last Pain Scale 5 Today, 04:00 Review of Systems ROS Status of ROS 10 or more systems reviewed and unremarkable except as noted in history and below PFSH PFSH Social History Little interest or pleasure in doing things: not at all Feeling down, depressed, or hopeless: not at all Exam Constitutional Vital Signs, click to edit/add: Last Vital Signs Temp 97.7 F 01/07/25 04:00 Pulse 69 01/07/25 04:00 Resp 20 01/07/25 04:00 BP 153/95 H 01/07/25 04:00 Pulse Ox 99 01/07/25 04:00 O2 Del Method Room Air 01/07/25 04:00 Common normals: no apparent distress, oriented x3, no limitations, healthy appearing, alert and well nourished [facility] Common normals: normocephalic and head/scalp atraumatic Eye Common normals: EOMs intact bilaterally and conjunctivae normal Respiratory Common normals: normal respiratory effort, no retractions, no use of accessory muscles and clear to auscultation bilaterally Cardio Common normals: regular rate, regular rhythm, S1 normal heart sound and S2 normal heart sound Extremity Other: mild swelling left lat. ankle. No discoloration. left knee and foot exam is neg Neuro Common normals: oriented x3, CN's II-XII intact bilaterally, moves all extremities and no focal motor deficits Psych Appearance: grossly normal Course Vital Signs Vital signs: Vital Signs Temperature 97.7 F 01/07/25 04:00 Pulse Rate 69 01/07/25 04:00 Respiratory Rate 20 01/07/25 04:00 Blood Pressure 153/95 H 01/07/25 04:00 Pulse Oximetry 99 01/07/25 04:00 Oxygen Delivery Method Room Air 01/07/25 04:00 Temperature 97.7 F 01/07/25 04:00 Pulse Rate 69 01/07/25 04:00 Respiratory Rate 20 01/07/25 04:00 Blood Pressure 153/95 H 01/07/25 04:00 Pulse Oximetry 99 01/07/25 04:00 Oxygen Delivery Method Room Air 01/07/25 04:00 MDM - Extremity Injury (Lower) MDM Narrative Medical decision making narrative: stepped on an object on the floor at work and rolled her left ankle. presents with mild swelling and tenderness left lateral malleolus. No discoloration. xray ordered xray report returned and neg for fracture. patient informed. States she is able to walk on her ankle and also feels she can perform her job without restrictions as he job only requires her to stand. She is advised to use motirn or similar for pain. Discharge Plan Discharge Chief Complaint: Extremity Injury, Lower Clinical Impression: Ankle sprain and strain Patient Disposition: Home, Self-Care Prescriptions / Home Meds: No Action omeprazole 40 mg capsule,delayed release(DR/EC) 40 mg PO DAILY metformin 500 mg tablet extended release 24 hr 1,000 mg PO BID Print Language: Portuguese Instructions: Ankle Strain (ED) Referrals: Anya Darden NP [Primary Care Provider] - 1 week
[2025-01-07 04:51] VITALS: BP 132/68; PULSE 66; O2SAT 100
== END 2025-01-07 06:00 | disposition home or self-care (01) ==
PROVIDERS: Emergency Provider Internal Medicine; PCP Nurse Practitioner Family
DX: S93.402A Sprain of unspecified ligament of left ankle, initial encounter (principal); S96.912A Strain of unspecified muscle and tendon at ankle and foot level, left foot, initial encounter; X50.1XXA Overexertion from prolonged static or awkward postures, initial encounter
CPT/HCPCS: 73610; 99283